=== PATIENT | male | born 1955 | race Caucasian/White ===

== ENCOUNTER 2021-08-03 13:26 | Inpatient (IN) | payer OTHER, MEDICARE ==
--- NOTE | 2021-08-03 13:51 | ED ---
General Adult HPI - General Chief complaint: Shortness of Breath Stated complaint: SOB Source: patient, EMS, RN notes reviewed Mode of arrival: EMS Limitations: no limitations - History of Present Illness Initial comments: This is a 66-year-old male who presents to us from [facility] they saw him up there for difficulty breathing today. Patient's past medical history is consistent with diabetes congestive heart failure bypass surgery a BKA on the left. Patient had a recent stress test that was abnormal so they wanted to a cardiac catheterization however when he was in the hospital his kidney function was off so they wanted the patient to stop his Lasix on so they were followed up in the maybe his kidney function would improve and they would feel more comfortable doing the catheterization. Patient states however over the last 2 or 3 days the he has had more difficulty breathing and so they went to the [place] emergency department. While in the department he was oxygenating about 90% on room air his BNP was over 8000 his d-dimer was elevated at 3.78 and his creatinine was 3.5 patient was unable to get a CAT scan because of the elevated creatinine so I started the patient on heparin and decided to send the patient to us. Patient normally would go to [facility] but [facility] was full and they tried [facility] but [facility] is full so he came to our facility. Patient denies any current chest pain but does complain of difficulty breathing - Related Data Allergies Allergy/AdvReac Type Severity Reaction Status Date / Time levofloxacin [From Levaquin] Allergy Rash/Hives Verified 08/03/21 13:39 metformin Allergy Vomiting Verified 08/03/21 13:39 sertraline [From Zoloft] Allergy Vomiting Verified 08/03/21 13:39 Review of Systems ROS Statement: Those systems with pertinent positive or pertinent negative responses have been documented in the HPI. ROS Other: All systems not noted in ROS Statement are negative. Past Medical History Past Medical History: Heart Failure, Diabetes Mellitus, Hypertension, Renal Disease Additional Past Medical History / Comment(s): mass of neck, UTI History of Any Multi-Drug Resistant Organisms: None Reported Past Surgical History: Coronary Bypass/CABG, Heart Catheterization, Pacemaker Additional Past Surgical History / Comment(s): urostomy, BKA Past Psychological History: Anxiety Smoking Status: Never smoker Past Alcohol Use History: None Reported Past Drug Use History: None Reported General Exam - General Exam Comments Initial Comments: GENERAL: Patient is well-developed and well-nourished. Patient is nontoxic and well- hydrated and is in mild distress. ENT: Neck is soft and supple. No significant lymphadenopathy is noted. Oropharynx is clear. Moist mucous membranes. Neck has full range of motion without eliciting any pain. EYES: The sclera were anicteric and conjunctiva were pink and moist. Extraocular movements were intact and pupils were equal round and reactive to light. Eyelids were unremarkable. PULMONARY: Unlabored respirations. Good breath sounds bilaterally. No audible rales rhonchi or wheezing was noted. CARDIOVASCULAR: There is a regular rate and rhythm without any murmurs gallops or rubs. ABDOMEN: Soft and nontender with normal bowel sounds. SKIN: Skin is clear with no lesions or rashes and otherwise unremarkable. NEUROLOGIC: Patient is alert and oriented x3. Cranial nerves II through XII are grossly intact. Motor and sensory are also intact. Normal speech, volume and content. Symmetrical smile. MUSCULOSKELETAL: Normal extremities with adequate strength and full range of motion. Patient has a BKA on the left. Patient has 1+ edema to the right leg. LYMPHATICS: No significant lymphadenopathy is noted PSYCHIATRIC: Normal psychiatric evaluation. Limitations: no limitations Course Vital Signs 08/03/21 13:30 Temperature 98.0 F Pulse Rate 78 Respiratory 22 Rate Blood Pressure 149/89 O2 Sat by Pulse 98 Oximetry Disposition Clinical Impression: Acute pulmonary edema, Elevated d-dimer, Renal failure, Hypoxia Disposition: ADMITTED IP TO THIS HOSP Referrals: None,Stated [Primary Care Provider] - 1-2 days Time of Disposition: 13:49
--- NOTE | 2021-08-03 15:25 | NM ---
EXAMINATION TYPE: NM pul vent and perfuse DATE OF EXAM: 08/03/2021 COMPARISON: Chest x-ray dated 08/03/2021 from outside institution HISTORY: Elevated d-dimer, difficulty breathing TECHNIQUE: Utilizing inhalation of 68.9 mCi Tc 99m DTPA aerosol and intravenous injection of 4.8 mCi of Tc 99m MAA, ventilation and perfusion images are acquired post injection in multiple projections. FINDINGS: There is a matching defect present in the left lower lobe which likely corresponds to patient's small left pleural effusion and associated atelectasis versus pneumonia or edema, cardiac enlargement on c hest x-ray. There is no evidence of mismatched defects. IMPRESSION: Low probability of pulmonary embolus
[2021-08-03] MEDS: FUROSEMIDE 10 MG/ML 2 ML VIAL IV SCH ×2 (15:53→20:21)
[2021-08-03 15:59] LABS: Glucose,Whole Blood 64 mg/dL (75-99)
--- NOTE | 2021-08-03 17:04 | P.HPIM ---
History of Present Illness H&P Date: 08/03/21 Chief Complaint: Shortness of breath 66-year-old male who presents to us from [facility] they saw him up there for difficulty breathing today. Patient's past medical history is consistent with diabetes congestive heart failure bypass surgery a BKA on the left. Patient had a recent stress test that was abnormal so they wanted to a cardiac catheterization however when he was in the hospital his kidney function was off so they wanted the patient to stop his Lasix on so they were followed up in the maybe his kidney function would improve and they would feel more comfortable doing the catheterization. Patient states however over the last 2 or 3 days the he has had more difficulty breathing and so they went to the [place] emergency department. While in the department he was oxygenating about 90% on room air his BNP was over 8000 his d-dimer was elevated at 3.78 and his creatinine was 3.5 patient was unable to get a CAT scan because of the elevated creatinine so I started the patient on heparin and decided to send the patient to us. Patient [facility] and they [facility] but [facility] is [facility] so he came to our facility. Patient denies any current chest pain but does complain of difficulty breathing Past Medical History Past Medical History: Heart Failure, Diabetes Mellitus, Hypertension, Renal Disease Additional Past Medical History / Comment(s): mass of neck, UTI History of Any Multi-Drug Resistant Organisms: None Reported Past Surgical History: Coronary Bypass/CABG, Heart Catheterization, Pacemaker Additional Past Surgical History / Comment(s): urostomy, BKA Past Psychological History: Anxiety Smoking Status: Never smoker Past Alcohol Use History: None Reported Past Drug Use History: None Reported Medications and Allergies Allergies Allergy/AdvReac Type Severity Reaction Status Date / Time levofloxacin [From Levaquin] Allergy Rash/Hives Verified 08/03/21 13:39 metformin Allergy Vomiting Verified 08/03/21 13:39 sertraline [From Zoloft] Allergy Vomiting Verified 08/03/21 13:39 Physical Exam Vitals: Vital Signs Temp Pulse Resp BP Pulse Ox 08/03/21 13:30 98.0 F 78 22 149/89 98 Intake and Output 08/02/21 08/03/21 08/03/21 22:59 06:59 14:59 Other: Weight 103.419 kg Patient is well-developed and well-nourished. Patient is nontoxic and well- hydrated and is in mild distress. Neck is soft and supple. No significant lymphadenopathy is noted. Oropharynx is clear. Moist mucous membranes. Neck has full range of motion without eliciting any pain. The sclera were anicteric and conjunctiva were pink and moist. Extraocular movements were intact and pupils were equal round and reactive to light. Eyelids were unremarkable. PULMONARY: Unlabored respirations. Good breath sounds bilaterally. No audible rales rhonchi or wheezing was noted. CARDIOVASCULAR: regular rate and rhythm without any murmurs gallops or rubs. ABDOMEN: Soft and nontender with normal bowel sounds. SKIN: clear with no lesions or rashes and otherwise unremarkable. NEUROLOGIC: Patient is alert and oriented x3. Cranial nerves II through XII are grossly intact. Motor and sensory are also intact. Normal speech, volume and content. Symmetrical smile. MUSCULOSKELETAL: Normal extremities with adequate strength and full range of motion. Patient has a BKA on the left. Patient has 1+ edema to the right leg. LYMPHATICS: No significant lymphadenopathy is noted PSYCHIATRIC: Normal psychiatric evaluation. Assessment and Plan Assessment: 1. Acute pulmonary edema; patienton Lasix 20 mg IV every 12 hours; we will monitor strict RHODA's, daily weights; low-salt and fluid restricted diet; cardiology consulted for further recommendations 2. Acute renal failure; concerns about worsening renal failure given acute pulmonary edema and need for diuresis; we will monitor strict RHODA's, daily weights, renal function and electrolytes; avoid nephrotoxins and hypotension; nephrology is consulted 3. Elevated d-dimer; rule out PE; patient is in acute renal failure, CTA chest not ordered, patient is to undergo VQ scanning; patient has been placed on IV heparin per protocol; further recommendations after VQ scan is completed 4. Acute hypoxic respiratory failure; multifactorial, acute pulmonary edema versus possible PE; VQ scan is ordered and pending; we will place patient on IV heparin per protocol if VQ scan is high probability 5. Hypertension; blood pressures currently stable; we will monitor closely with further recommendations 6. Diabetes mellitus; monitor Accu-Cheks before meals and at bedtime with insulin sliding scale 7. CAD; patient is status post heart catheterization, CABG and pacemaker placement DVT prophylaxis; SCDs/subcu heparin CODE STATUS; full code
[2021-08-03 19:27] LABS: Glucose,Whole Blood 135 mg/dL (75-99)
[2021-08-03] MEDS ORDERED: ALPRAZolam 0.5 MG TAB PO STA (20:02)
[2021-08-03] MEDS: ONDANSETRON 4 MG/2 ML VIAL IVP PRN (20:21)
[2021-08-04] MEDS: ONDANSETRON 4 MG/2 ML VIAL IVP PRN ×2 (02:48→15:59)
[2021-08-04 06:18] LABS: Glucose,Whole Blood 103 mg/dL (75-99)
--- NOTE | 2021-08-04 08:19 | P.CRDCN ---
History of Present Illness Consult date: 08/04/21 Chief complaint: Difficulty breathing History of present illness: This is a 66-year-old gentleman who sees a patient attendant out of this area. He does have an extensive cardiovascular history consistent of coronary artery disease and status post coronary artery that is grafting with unknown details, permanent pacemaker, peripheral arterial disease and prior left below the knee amputation, as well as hypertension and dyslipidemia and history of heart failure of unknown etiology. We consulted to see the patient for further evaluation of difficulty in breathing. The patient was seen recently by his patient attendant for increasing shortness of breath and he underwent a stress test and he was told that the stress test is "abnormal". He scheduled to undergo a heart catheterization but unfortunately because of renal dysfunction the catheterization was canceled. For the last several days he has been experiencing increasing in the shortness of breath with exertion without any chest pain or chest discomfort. He stated that he gained some weight but he does not recall how many pounds. He did not have any edema in the right leg. He denies any dizziness or lightheadedness or any presyncope or syncope. He initially presented to the emergency department at different hospital and subsequently he was transferred here. I did review the EKG from the other hospital which revealed ventricular paced rhythm. The patient clinically seems to be in heart failure. Currently he is on Lasix 20 mg IVP artery. We don't have any basic blood workup at this point on him nor an echocardiogram. We are going to obtain both. He underwent a VQ scan and that showed low priority for PE. Past Medical History Past Medical History: Heart Failure, Diabetes Mellitus, Hypertension, Renal Disease Additional Past Medical History / Comment(s): mass of neck, UTI History of Any Multi-Drug Resistant Organisms: None Reported Past Surgical History: Coronary Bypass/CABG, Heart Catheterization, Pacemaker Additional Past Surgical History / Comment(s): urostomy, BKA Type of Cardiac Device: Permanent Pacemaker Device Placement Date:: 2017 Past Psychological History: Anxiety, Panic Disorder Smoking Status: Never smoker Past Alcohol Use History: None Reported Past Drug Use History: None Reported - Past Family History Father Family Medical History: Congestive Heart Failure (CHF), Diabetes Mellitus, Hypertension Medications and Allergies Home Medications Medication Instructions Recorded Confirmed Type ALPRAZolam [Xanax] 0.5 mg PO BID PRN 08/03/21 08/03/21 History Aspirin EC [Ecotrin Low Dose] 81 mg PO HS 08/03/21 08/03/21 History Furosemide [Lasix] 40 mg PO DAILY PRN 08/03/21 08/03/21 History Insulin Glargine [Lantus Vial] 14 unit SQ DAILY 08/03/21 08/03/21 History Metoprolol Tartrate [Lopressor] 100 mg PO BID 08/03/21 08/03/21 History Pravastatin Sodium [Pravachol] 20 mg PO HS 08/03/21 08/03/21 History Sodium Bicarbonate Tab 650 mg PO BID 08/03/21 08/03/21 History amLODIPine [Norvasc] 10 mg PO DAILY 08/03/21 08/03/21 History calcitrioL [Calcitriol] 0.25 mcg PO DAILY 08/03/21 08/03/21 History glipiZIDE [Glucotrol] 10 mg PO AC-BRKFST 08/03/21 08/03/21 History hydrALAZINE HCL [Apresoline] 50 mg PO BID 08/03/21 08/03/21 History hydrALAZINE HCL [Apresoline] 100 mg PO DAILY@1200 08/03/21 08/03/21 History Allergies Allergy/AdvReac Type Severity Reaction Status Date / Time levofloxacin [From Levaquin] Allergy Rash/Hives Verified 08/03/21 20:26 metformin Allergy Vomiting Verified 08/03/21 20:26 sertraline [From Zoloft] Allergy Vomiting Verified 08/03/21 20:26 Physical Exam Vitals: Vital Signs Temp Pulse Pulse Resp BP BP Pulse Ox 08/04/21 03:02 98.0 F 72 18 161/74 95 08/04/21 02:00 70 18 08/04/21 00:00 98.5 F 73 24 147/68 93 L 08/03/21 20:00 70 18 08/03/21 19:15 98.1 F 72 18 154/70 08/03/21 16:59 68 20 153/69 97 08/03/21 15:49 67 20 100/80 97 08/03/21 13:39 24 08/03/21 13:30 98.0 F 78 22 149/89 98 Intake and Output 08/03/21 08/04/21 08/04/21 22:59 06:59 14:59 Output Total 550 Balance -550 Output: Urine 550 Other: Weight 103.419 kg 102.6 kg - Constitutional General appearance: no acute distress - Respiratory Respiratory: bilateral: diminished - Cardiovascular Rhythm: regular Heart sounds: normal: S1, S2 Abnormal Heart Sounds: systolic murmur Results Current Medications Generic Name Dose Route Start Last Admin Trade Name Freq PRN Reason Stop Dose Admin Furosemide 20 mg 08/03/21 14:15 08/03/21 20:21 Furosemide 10 Mg/Ml 2 Ml Vial IV 20 mg Q12HR KYLIE Administration Ondansetron HCl 4 mg 08/03/21 20:07 08/04/21 02:48 Ondansetron 4 Mg/2 Ml Vial IVP 4 mg Q6HR PRN Administration Nausea And Vomiting Intake and Output 08/03/21 08/04/21 08/04/21 22:59 06:59 14:59 Output Total 550 Balance -550 Output: Urine 550 Other: Weight 103.419 kg 102.6 kg Assessment and Plan Assessment: Assessment #1 congestive heart failure exacerbation and known etiology at this point #2 coronary artery disease and status post CABG #3 peripheral arterial disease and status post left below the knee amputation #4 hypertension #6 dyslipidemia #7 chronic kidney disease #8 status post permanent pacemaker Plan #1 continue the current dose of Lasix IV #2 continue monitoring the kidney function and electrolytes #3 obtain a basic blood work #4 obtain an echocardiogram was Doppler #5 follow-up with the patient
[2021-08-04] MEDS ORDERED: INSULIN DETEMIR (LEVEMIR) 100 UNIT/ML SYR SQ SCH (09:00)
[2021-08-04] MEDS: hydrALAZINE HCL 50 MG TAB PO SCH ×3 (09:00→20:29)
[2021-08-04] MEDS: amLODIPine 10 MG TAB PO SCH (09:00)
[2021-08-04] MEDS ORDERED: SODIUM BICARBONATE TAB 650 MG TAB PO SCH (09:00)
[2021-08-04] MEDS: METOPROLOL TARTRATE 50 MG TAB PO SCH ×2 (09:00→20:28)
[2021-08-04] MEDS: FUROSEMIDE 10 MG/ML 2 ML VIAL IV SCH (09:01)
[2021-08-04 09:24] LABS: Basophils % (A) 0 %; Eosinophils % (A) 0 %; HCT 26.6 % (39.0-53.0); HGB 8.9 gm/dL (13.0-17.5); Lymphocytes # (A) 0.4 k/uL (1.0-4.8); Lymphocytes % (A) 8 %; MCH 28.4 pg (25.0-35.0); MCHC 33.5 g/dL (31.0-37.0); MCV 84.8 fL (80.0-100.0); Monocytes # (A) 0.3 k/uL (0-1.0); Monocytes % (A) 6 %; Neutrophils # (A) 4.5 k/uL (1.3-7.7); Neutrophils % (A) 83 %; Platelet Count 171 k/uL (150-450); RBC 3.13 m/uL (4.30-5.90); RDW 15.1 % (11.5-15.5); WBC 5.5 k/uL (3.8-10.6)
[2021-08-04 09:49] LABS: Calcium 7.5 mg/dL (8.4-10.2); Potassium 4.8 mmol/L (3.5-5.1)
--- NOTE | 2021-08-04 09:55 | XR ---
EXAMINATION TYPE: XR chest 2V DATE OF EXAM: 08/04/2021 COMPARISON: Outside hospital chest radiograph dated 08/03/2021 HISTORY: 66 years Male. STUDY INDICATION GIVEN: Chest Pain . TECHNIQUE: Frontal lateral chest radiographs IMPRESSION: Compared to the outside chest radiograph there is worsening of interstitial bilateral opacities which are greater on the right. These may represent pulmonary edema secondary to congestive heart failure. Underlying pneumonic infiltrate cannot be entirely excluded. The heart is enlarged. There is a small left pleural effusion. No pleural effusion seen on the right. No pneumothorax. Cardiac pacemaker and postsurgical changes in the mediastinum are seen. Atherosclerotic calcification s in the intrathoracic aorta noted. No acute osseous abnormality.
--- NOTE | 2021-08-04 11:48 | P.NPCON ---
History of Present Illness - Reason for Consult Consult date: 08/04/21 acute renal failure - Chief Complaint Shortness of breath - History of Present Illness This is a 66-year-old male seen in consultation because of acute kidney injury and chronic kidney disease. He was admitted with shortness of breath. He is known with chronic kidney disease, he is under the care of Dr. peter Sun his baseline creatinine supposedly 2.7 but the last few weeks it has been going up. His Lasix was therefore discontinued to see if his creatinine would improve. His creatinine here on admission was 3.53 as of this morning. He is known with diabetes for 15 years, has had very artery bypass graft and pacer in the past he left BKA in 2013 EC of the bladder with urostomy in 2018. Supposedly and recent ultrasound a few weeks ago was unremarkable for any hydronephrosis. Currently he is mildly short of breath. Has mild edema of his right leg Past Medical History Past Medical History: Heart Failure, Diabetes Mellitus, Hypertension, Renal Disease Additional Past Medical History / Comment(s): mass of neck, UTI History of Any Multi-Drug Resistant Organisms: None Reported Past Surgical History: Coronary Bypass/CABG, Heart Catheterization, Pacemaker Additional Past Surgical History / Comment(s): urostomy, BKA Type of Cardiac Device: Permanent Pacemaker Device Placement Date:: 2017 Past Psychological History: Anxiety, Panic Disorder Smoking Status: Never smoker Past Alcohol Use History: None Reported Past Drug Use History: None Reported - Past Family History Father Family Medical History: Congestive Heart Failure (CHF), Diabetes Mellitus, Hypertension Medications and Allergies Home Medications Medication Instructions Recorded Confirmed Type ALPRAZolam [Xanax] 0.5 mg PO BID PRN 08/03/21 08/03/21 History Aspirin EC [Ecotrin Low Dose] 81 mg PO HS 08/03/21 08/03/21 History Furosemide [Lasix] 40 mg PO DAILY PRN 08/03/21 08/03/21 History Insulin Glargine [Lantus Vial] 14 unit SQ DAILY 08/03/21 08/03/21 History Metoprolol Tartrate [Lopressor] 100 mg PO BID 08/03/21 08/03/21 History Pravastatin Sodium [Pravachol] 20 mg PO HS 08/03/21 08/03/21 History Sodium Bicarbonate Tab 650 mg PO BID 08/03/21 08/03/21 History amLODIPine [Norvasc] 10 mg PO DAILY 08/03/21 08/03/21 History calcitrioL [Calcitriol] 0.25 mcg PO DAILY 08/03/21 08/03/21 History glipiZIDE [Glucotrol] 10 mg PO AC-BRKFST 08/03/21 08/03/21 History hydrALAZINE HCL [Apresoline] 50 mg PO BID 08/03/21 08/03/21 History hydrALAZINE HCL [Apresoline] 100 mg PO DAILY@1200 08/03/21 08/03/21 History Allergies Allergy/AdvReac Type Severity Reaction Status Date / Time levofloxacin [From Levaquin] Allergy Rash/Hives Verified 08/03/21 20:26 metformin Allergy Vomiting Verified 08/03/21 20:26 sertraline [From Zoloft] Allergy Vomiting Verified 08/03/21 20:26 Physical Exam Vitals: Vital Signs Temp Pulse Pulse Resp BP BP Pulse Ox 08/04/21 08:00 98.0 F 69 148/68 93 L 08/04/21 03:02 98.0 F 72 18 161/74 95 08/04/21 02:00 70 18 08/04/21 00:00 98.5 F 73 24 147/68 93 L 08/03/21 20:00 70 18 08/03/21 19:15 98.1 F 72 18 154/70 08/03/21 16:59 68 20 153/69 97 08/03/21 15:49 67 20 100/80 97 08/03/21 13:39 24 08/03/21 13:30 98.0 F 78 22 149/89 98 Intake and Output 08/03/21 08/04/21 08/04/21 22:59 06:59 14:59 Intake Total 180 Output Total 550 275 Balance -550 -95 Intake: Oral 180 Output: Urine 550 275 Other: Weight 103.419 kg 102.6 kg On examination awake alert oriented comfortable. He is on nasal cannula oxygen HEENT exam no JVP neck is supple no facial asymmetry no carotid bruit. Heart sounds are unremarkable for any murmur rub gallop. Lungs are clear to auscultation with an occasional coarse crackle at bases good air entry bilaterally Abdomen soft nontender no organomegaly status masses Extremity exam was BKA on the left with the prosthesis is on. The right leg has mild to moderate edema Neurologically awake alert oriented Results - Lab Results Most recent lab results Calcium 7.5 mg/dL (8.4-10.2) L 08/04/21 08:32 08/04/21 08:32 08/04/21 08:32 Assessment and Plan Assessment: Impression 1. Acute kidney injury secondary to cardiorenal syndrome. 2. 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 Baseline creatinine is 2.7 per patient's history dates not clear but has been worsening recently 2 up to 3. 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 Lyle at [place]. 3. Coronary artery disease status post bypass in the remote past. 4. History of pacer 5. 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 History of BKA 2013 on the left. 7. Mild degree of non-gap acidosis. Bicarb is 15 gap is 11 8. Anemia of chronic illness. He was 8.9 rule out an deficiency Recommendation 1. Maintain Lasix, increase the dose from 20 mg every 12-40 every 12 and check strict I's and O's. 2. Check iron saturation. 3. Agree with sodium bicarb 650 4 times a day currently on twice a day dose will increase the dose. 4. Regarding cardiac catheterization hold until we can stabilize his creatinine. Patient is agreeable to undergo cardiac catheterization necessary and understand the risk of ATN possibly, and further going on for dialysis although the possibilities in small that he'll require dialysis of the cardiac catheterization Thank you for this consultation and we'll continue to follow
[2021-08-04 11:54] LABS: Glucose,Whole Blood 83 mg/dL (75-99)
[2021-08-04] MEDS: INSULIN ASPART (NovoLOG) 100 UNIT/ML VIAL SQ SCH ×3 (12:15→23:32)
[2021-08-04 12:53] VITALS: BMI 33.4
--- NOTE | 2021-08-04 13:00 | P.CNPUL ---
History of Present Illness Consult date: 08/04/21 Requesting physician: Amee Chavez Reason for consult: dyspnea, hypoxemia, abnormal CXR/CT Chief complaint: Shortness of breath. History of present illness: Pulmonary consultation dated 08/04/2021. 66-year-old male, who was sent down from [facility], for difficulty breathing. The patient was apparently to have a cardiac catheterization. Because of poor kidney function, the patient was receiving IV hydration. The patient's cardiac catheterization was canceled because of some abnormal blood work, and he did not receive his usual Lasix dose. Because of that reason, the patient became short of breath, and developed congestive heart failure. The patient was admitted to the hospital, given oxygen therapy, and Lasix. The patient is feeling much better. She is much less short of breath. He denies any chest pain or chest pressure. He also denies any fever or chills. Curren tly, white count is 5.5, hemoglobin 8.9, hematocrit 26.6, and platelet count 171,000. Sodium 134, potassium 4.8, chlorides 108, CO2 15, anion gap 11, BUN and creatinine 58 and 3.53. Troponin was 0.017. N-terminal proBNP was 10,100. For some reason, a ventilation perfusion lung scan was ordered. It was low probability for PE. Chest x-ray was consistent with CHF. There was also cardiomegaly, and a small left-sided pleural effusion. Cardiac pacemaker was also noted. The patient has a history of congestive heart failure, diabetes mellitus, hypertension, chronic kidney disease, bypass grafting, pacemaker insertion, and below the knee amputation. Review of Systems REVIEW OF SYSTEMS: CONSTITUTIONAL: [Negative.] NEUROLOGIC: [ Negative.] HEENT: [ Negative.] CARDIAC: Shortness of breath. PULMONARY: [Negative.] GI: Nausea without emesis. : [Negative.] RHEUMATOLOGIC: [ Negative.] IMMUNOLOGIC: [ Negative.] ENDOCRINE: [Negative. ] DERMATOLOGIC: [Negative.] Past Medical History Past Medical History: Heart Failure, Diabetes Mellitus, Hypertension, Renal Disease Additional Past Medical History / Comment(s): mass of neck, UTI History of Any Multi-Drug Resistant Organisms: None Reported Past Surgical History: Coronary Bypass/CABG, Heart Catheterization, Pacemaker Additional Past Surgical History / Comment(s): urostomy, BKA Type of Cardiac Device: Permanent Pacemaker Device Placement Date:: 2017 Past Psychological History: Anxiety, Panic Disorder Smoking Status: Never smoker Past Alcohol Use History: None Reported Past Drug Use History: None Reported - Past Family History Father Family Medical History: Congestive Heart Failure (CHF), Diabetes Mellitus, Hypertension Medications and Allergies Home Medications Medication Instructions Recorded Confirmed Type ALPRAZolam [Xanax] 0.5 mg PO BID PRN 08/03/21 08/03/21 History Aspirin EC [Ecotrin Low Dose] 81 mg PO HS 08/03/21 08/03/21 History Furosemide [Lasix] 40 mg PO DAILY PRN 08/03/21 08/03/21 History Insulin Glargine [Lantus Vial] 14 unit SQ DAILY 08/03/21 08/03/21 History Metoprolol Tartrate [Lopressor] 100 mg PO BID 08/03/21 08/03/21 History Pravastatin Sodium [Pravachol] 20 mg PO HS 08/03/21 08/03/21 History Sodium Bicarbonate Tab 650 mg PO BID 08/03/21 08/03/21 History amLODIPine [Norvasc] 10 mg PO DAILY 08/03/21 08/03/21 History calcitrioL [Calcitriol] 0.25 mcg PO DAILY 08/03/21 08/03/21 History glipiZIDE [Glucotrol] 10 mg PO AC-BRKFST 08/03/21 08/03/21 History hydrALAZINE HCL [Apresoline] 50 mg PO BID 08/03/21 08/03/21 History hydrALAZINE HCL [Apresoline] 100 mg PO DAILY@1200 08/03/21 08/03/21 History Allergies Allergy/AdvReac Type Severity Reaction Status Date / Time levofloxacin [From Levaquin] Allergy Rash/Hives Verified 08/03/21 20:26 metformin Allergy Vomiting Verified 08/03/21 20:26 sertraline [From Zoloft] Allergy Vomiting Verified 08/03/21 20:26 Physical Exam Osteopathic Statement: *. No significant issues noted on an osteopathic structural exam other than those noted in the History and Physical/Consult. Vitals: Vital Signs Temp Pulse Pulse Resp BP BP Pulse Ox 08/04/21 12:00 65 122/58 95 08/04/21 08:00 98.0 F 69 148/68 93 L 08/04/21 03:02 98.0 F 72 18 161/74 95 08/04/21 02:00 70 18 08/04/21 00:00 98.5 F 73 24 147/68 93 L 08/03/21 20:00 70 18 08/03/21 19:15 98.1 F 72 18 154/70 08/03/21 16:59 68 20 153/69 97 08/03/21 15:49 67 20 100/80 97 08/03/21 13:39 24 08/03/21 13:30 98.0 F 78 22 149/89 98 Intake and Output 08/03/21 08/04/21 08/04/21 22:59 06:59 14:59 Intake Total 180 Output Total 550 275 Balance -550 -95 Intake: Oral 180 Output: Urine 550 275 Other: Weight 103.419 kg 102.6 kg No acute distress, oriented 3. 2 L saturation is 95%. HEENT examination is grossly unremarkable. Neck supple. Full range of motion. No adenopathy thyromegaly or neck vein distention. Cardiovascular examination reveals regular rhythm rate. S1-S2 normal. No S3 or S4. No discernible murmur noted. Heart sounds are very distant. Heart rate 65 bpm. Lungs reveal bibasilar crackles. No wheezes or rhonchi. Breath sounds equal bilaterally. Abdomen soft bowel sounds are heard. No masses or tenderness. Extremities are intact. No cyanosis or clubbing. No significant edema. Below the knee amputation noted on the left. Skin is without rash or lesion. Neurologic examination is brief but nonfocal. Results - Laboratory Findings CBC and BMP: 08/04/21 08:32 08/04/21 08:32 Abnormal lab findings: Abnormal Labs 08/03/21 08/03/21 08/04/21 15:52 19:16 06:09 RBC Hgb Hct Lymphocytes # Sodium Chloride Carbon Dioxide BUN Creatinine Glucose POC Glucose (mg/dL) 64 L 135 H 103 H Calcium 08/04/21 08/04/21 08:32 08:32 RBC 3.13 L Hgb 8.9 L Hct 26.6 L Lymphocytes # 0.4 L Sodium 134 L Chloride 108 H Carbon Dioxide 15 L BUN 58 H Creatinine 3.53 H Glucose 122 H POC Glucose (mg/dL) Calcium 7.5 L - Diagnostic Findings Chest x-ray: image reviewed Assessment and Plan Assessment: Acute hypoxemic respiratory failure, secondary to acute pulmonary edema/CHF. History of CHF. History of diabetes mellitus. History of hypertension. History of chronic kidney disease. Status post bypass grafting for CAD. Prior history of heart catheterization. History of pacemaker implantation. History of left BKA. Plan: Plan dated 08/04/2021. Currently, the patient's doing much better. The patient is not receiving any IV fluids. He's only on 2 L nasal cannula. Saturations are excellent. He is clinically improved. He did receive some Lasix. His pattern on chest x-ray was consistent with fluid overload/CHF. Chronic lung disease. Patient is a lifelong nontobacco user. Time with Patient: Greater than 30
[2021-08-04] MEDS: FUROSEMIDE 10 MG/ML 4 ML VIAL IV SCH ×2 (13:08→20:32)
[2021-08-04] MEDS: SODIUM BICARBONATE TAB 650 MG TAB PO SCH ×3 (13:09→23:32)
[2021-08-04 16:37] LABS: Glucose,Whole Blood 115 mg/dL (75-99)
[2021-08-04 16:50] LABS: Creatinine,Urine Random 95.4 mg/dL; Protein/Creatinine Ratio,Urine 1.363
[2021-08-04] MEDS: ALPRAZolam 0.5 MG TAB PO PRN (17:18)
--- NOTE | 2021-08-04 17:29 | P.PN ---
Subjective Progress Note Date: 08/04/21 Principal diagnosis: Acute hypoxemic respiratory failure Acute pulmonary edema/CHF 66-year-old male who presents to us from [facility] they saw him up there for difficulty breathing today. Patient's past medical history is consistent with diabetes congestive heart failure bypass surgery a BKA on the left. Patient had a recent stress test that was abnormal so they wanted to a cardiac catheterization however when he was in the hospital his kidney function was off so they wanted the patient to stop his Lasix on so they were followed up in the maybe his kidney function would improve and they would feel more comfortable doing the catheterization. Patient states however over the last 2 or 3 days the he has had more difficulty breathing and so they went to the [place] emergency department. While in the department he was oxygenating about 90% on room air his BNP was over 8000 his d-dimer was elevated at 3.78 and his creatinine was 3.5 patient was unable to get a CAT scan because of the elevated creatinine so I started the patient on heparin and decided to send the patient to us. Patient normally would [facility] and [facility] so he came to our facility. Patient denies any current chest pain but does complain of difficulty breathing Objective - Vital Signs Vital signs: Vital Signs Temp 98.0 F 08/04/21 08:00 Pulse 65 08/04/21 12:00 Resp 18 08/04/21 03:02 BP 122/58 08/04/21 12:00 Pulse Ox 95 08/04/21 12:00 Intake & Output 08/03/21 08/04/21 08/04/21 18:59 06:59 18:59 Intake Total 300 Output Total 550 575 Balance -550 275 Weight 103.419 kg 102.6 kg 102.6 kg Intake: Oral 300 Output: Urine 550 575 - Exam - Constitutional General appearance: Present: average body habitus, cooperative, no acute dist ress - EENT Eyes: Present: anicteric sclerae, EOMI, PERRLA, normal appearance ENT: Present: hearing grossly normal, normal oropharynx Ears: bilateral: normal - Neck Neck: Present: normal ROM. Absent: lymphadenopathy, rigidity, thyromegaly Carotids: negative: bruit present Thyroid: bilateral: normal size, negative: enlarged, nodule - Respiratory Respiratory: bilateral: CTA, negative: rales, rhonchi, wheezing - Cardiovascular Rhythm: regular Heart sounds: normal: S1, S2 Abnormal Heart Sounds: Absent: systolic murmur, diastolic murmur - Gastrointestinal General gastrointestinal: Present: normal bowel sounds, soft. Absent: distended, organomegaly, tenderness - Genitourinary Genitourinary Comment(s): deferred - Integumentary Integumentary: Present: normal turgor. Absent: jaundiced, rash, ulcer - Neurologic Neurologic: Present: CNII-XII intact. Absent: focal deficits - Musculoskeletal Musculoskeletal: Present: gait normal, strength equal bilaterally - Psychiatric Psychiatric: Present: A&O x's 3, appropriate affect, intact judgment & insight - Labs CBC & Chem 7: 08/04/21 08:32 08/04/21 08:32 Labs: Abnormal Lab Results - Last 24 Hours (Table) 08/03/21 08/03/21 08/04/21 Range/Units 15:52 19:16 06:09 RBC (4.30-5.90) m/uL Hgb (13.0-17.5) gm/dL Hct (39.0-53.0) % Lymphocytes # (1.0-4.8) k/uL Sodium (137-145) mmol/L Chloride (98-107) mmol/L Carbon Dioxide (22-30) mmol/L BUN (9-20) mg/dL Creatinine (0.66-1.25) mg/dL Glucose (74-99) mg/dL POC Glucose (mg/dL) 64 L 135 H 103 H (75-99) mg/dL Calcium (8.4-10.2) mg/dL 08/04/21 08/04/21 Range/Units 08:32 08:32 RBC 3.13 L (4.30-5.90) m/uL Hgb 8.9 L (13.0-17.5) gm/dL Hct 26.6 L (39.0-53.0) % Lymphocytes # 0.4 L (1.0-4.8) k/uL Sodium 134 L (137-145) mmol/L Chloride 108 H (98-107) mmol/L Carbon Dioxide 15 L (22-30) mmol/L BUN 58 H (9-20) mg/dL Creatinine 3.53 H (0.66-1.25) mg/dL Glucose 122 H (74-99) mg/dL POC Glucose (mg/dL) (75-99) mg/dL Calcium 7.5 L (8.4-10.2) mg/dL Assessment and Plan Assessment: 1. Acute pulmonary edema; patienton Lasix 20 mg IV every 12 hours; we will monitor strict RHODA's, daily weights; low-salt and fluid restricted diet; cardiology consulted for further recommendations 2. Acute renal failure; concerns about worsening renal failure given acute pulmonary edema and need for diuresis; we will monitor strict RHODA's, daily weights, renal function and electrolytes; avoid nephrotoxins and hypotension; nephrology is consulted 3. Elevated d-dimer; rule out PE; patient is in acute renal failure, CTA chest not ordered, patient is to undergo VQ scanning; patient has been placed on IV heparin per protocol; further recommendations after VQ scan is completed 4. Acute hypoxic respiratory failure; multifactorial, acute pulmonary edema versus possible PE; VQ scan is ordered and pending; we will place patient on IV heparin per protocol if VQ scan is high probability 5. Hypertension; blood pressures currently stable; we will monitor closely with further recommendations 6. Diabetes mellitus; monitor Accu-Cheks before meals and at bedtime with insulin sliding scale 7. CAD; patient is status post heart catheterization, CABG and pacemaker placement DVT prophylaxis; SCDs/subcu heparin CODE STATUS; full code
[2021-08-04] MEDS: ASPIRIN 81 MG PO SCH (20:28)
[2021-08-04] MEDS: PRAVASTATIN SODIUM 20 MG TAB PO SCH (20:29)
[2021-08-04 20:43] LABS: Glucose,Whole Blood 161 mg/dL (75-99)
[2021-08-05 06:24] LABS: Glucose,Whole Blood 100 mg/dL (75-99)
--- NOTE | 2021-08-05 07:09 | P.PN ---
Subjective Progress Note Date: 08/05/21 Principal diagnosis: Heart failure of unknown etiology The patient was seen this morning. He is diuresing well. He is feeling overall better. The shortness of breath is better. Lower extremities edema is better as well. He denies any symptoms of chest chest discomfort. The echo still pending. Nephrology is on the case as well. Objective - Vital Signs Vital signs: Vital Signs Temp 97.4 F L 08/05/21 04:00 Pulse 65 08/05/21 04:00 Resp 17 08/05/21 04:00 BP 123/52 08/05/21 04:00 Pulse Ox 93 L 08/05/21 04:00 Intake & Output 08/04/21 08/05/21 08/05/21 18:59 06:59 18:59 Intake Total 420 Output Total 875 700 Balance -455 -700 Weight 102.6 kg 102.4 kg Intake: Oral 420 Output: Urine 875 700 Other: Voiding Method Ileal Conduit (Right) # Voids 1 - Constitutional General appearance: Present: no acute distress - Respiratory Respiratory: bilateral: diminished - Cardiovascular Heart sounds: normal: S1, S2 - Labs CBC & Chem 7: 08/04/21 08:32 08/04/21 08:32 Labs: Abnormal Lab Results - Last 24 Hours (Table) 08/04/21 08/04/21 08/04/21 Range/Units 08:32 08:32 16:35 RBC 3.13 L (4.30-5.90) m/uL Hgb 8.9 L (13.0-17.5) gm/dL Hct 26.6 L (39.0-53.0) % Lymphocytes # 0.4 L (1.0-4.8) k/uL Sodium 134 L (137-145) mmol/L Chloride 108 H (98-107) mmol/L Carbon Dioxide 15 L (22-30) mmol/L BUN 58 H (9-20) mg/dL Creatinine 3.53 H (0.66-1.25) mg/dL Glucose 122 H (74-99) mg/dL POC Glucose (mg/dL) 115 H (75-99) mg/dL Calcium 7.5 L (8.4-10.2) mg/dL 08/04/21 08/05/21 Range/Units 20:37 06:04 RBC (4.30-5.90) m/uL Hgb (13.0-17.5) gm/dL Hct (39.0-53.0) % Lymphocytes # (1.0-4.8) k/uL Sodium (137-145) mmol/L Chloride (98-107) mmol/L Carbon Dioxide (22-30) mmol/L BUN (9-20) mg/dL Creatinine (0.66-1.25) mg/dL Glucose (74-99) mg/dL POC Glucose (mg/dL) 161 H 100 H (75-99) mg/dL Calcium (8.4-10.2) mg/dL Assessment and Plan Assessment: Assessment #1 congestive heart failure exacerbation and known etiology at this point #2 coronary artery disease and status post CABG #3 peripheral arterial disease and status post left below the knee amputation #4 hypertension #6 dyslipidemia #7 chronic kidney disease #8 status post permanent pacemaker Plan #1 continue the current dose of Lasix IV #2 continue monitoring the kidney function and electrolytes #3 follow-up with the blood work from the morning #4 obtain an echocardiogram was Doppler #5 follow-up with the patient
[2021-08-05] MEDS: INSULIN ASPART (NovoLOG) 100 UNIT/ML VIAL SQ SCH ×4 (08:02→20:48)
[2021-08-05] MEDS: METOPROLOL TARTRATE 50 MG TAB PO SCH ×2 (09:03→20:47)
[2021-08-05] MEDS: hydrALAZINE HCL 50 MG TAB PO SCH ×3 (09:03→20:47)
[2021-08-05] MEDS: SODIUM BICARBONATE TAB 650 MG TAB PO SCH ×4 (09:03→20:48)
[2021-08-05] MEDS: amLODIPine 10 MG TAB PO SCH (09:03)
[2021-08-05] MEDS: FUROSEMIDE 10 MG/ML 4 ML VIAL IV SCH ×2 (09:03→20:48)
[2021-08-05 09:05] LABS: Calcium 8.1 mg/dL (8.4-10.2); Potassium 4.8 mmol/L (3.5-5.1)
[2021-08-05 09:26] LABS: Basophils % (A) 0 %; Eosinophils # (A) 0.1 k/uL (0-0.7); Eosinophils % (A) 1 %; HGB 9.4 gm/dL (13.0-17.5); Lymphocytes # (A) 0.5 k/uL (1.0-4.8); Lymphocytes % (A) 7 %; MCH 28.6 pg (25.0-35.0); MCHC 33.5 g/dL (31.0-37.0); MCV 85.3 fL (80.0-100.0); Mean Platelet Volume 7.8; Monocytes # (A) 0.5 k/uL (0-1.0); Monocytes % (A) 6 %; Neutrophils # (A) 6.5 k/uL (1.3-7.7); Neutrophils % (A) 85 %; Platelet Count 202 k/uL (150-450); RBC 3.28 m/uL (4.30-5.90); WBC 7.6 k/uL (3.8-10.6)
--- NOTE | 2021-08-05 10:13 | P.PN ---
Subjective Progress Note Date: 08/05/21 Principal diagnosis: This is a 66-year-old male seen in consultation because of acute kidney injury and chronic kidney disease. He was admitted with shortness of breath. He is known with chronic kidney disease, he is under the care of Dr. Lyle at [place], his baseline creatinine supposedly 2.7 but the last few weeks it has been going up. His Lasix was therefore discontinued to see if his creatinine would improve. His creatinine here on admission was 3.53. His x-ray on admission showed congestive heart failure. He was started on Lasix. He responded with improved urine output, 157 5 mL, less short of breath but still feels weak and tired and short of breath poor appetite. His creatinine went up to 4.1.. He is known with diabetes for 15 years, has had very artery bypass graft and pacer in the past he left BKA in 2013 EC of the bladder with urostomy in 2018. Supposedly and recent ultrasound a few weeks ago was unremarkable for any hydronephrosis. Objective - Vital Signs Vital signs: Vital Signs Temp 97.4 F L 08/05/21 04:00 Pulse 65 08/05/21 04:00 Resp 17 08/05/21 04:00 BP 123/52 08/05/21 04:00 Pulse Ox 93 L 08/05/21 04:00 Intake & Output 08/04/21 08/05/21 08/05/21 18:59 06:59 18:59 Intake Total 420 240 Output Total 875 700 Balance -455 -700 240 Weight 102.6 kg 102.4 kg Intake: Oral 420 240 Output: Urine 875 700 Other: Voiding Method Ileal Conduit (Right) # Voids 1 On exam he is awake alert oriented HEENT exam no JVP neck is supple no facial asymmetry Lungs are significant for occasional coarse crackle at bases fairly good air entry bilaterally Heart sounds unremarkable for any murmur rub gallop Abdomen soft nontender nondistended. He has a urostomy bag Extremity examination reveals left BKA remote and the right leg has minimal edema. Neurologically awake alert oriented. - Labs CBC & Chem 7: 08/05/21 08:40 08/05/21 08:40 Labs: Abnormal Lab Results - Last 24 Hours (Table) 08/04/21 08/04/21 08/05/21 Range/Units 16:35 20:37 06:04 RBC (4.30-5.90) m/uL Hgb (13.0-17.5) gm/dL Hct (39.0-53.0) % Lymphocytes # (1.0-4.8) k/uL Sodium (137-145) mmol/L Carbon Dioxide (22-30) mmol/L BUN (9-20) mg/dL Creatinine (0.66-1.25) mg/dL Glucose (74-99) mg/dL POC Glucose (mg/dL) 115 H 161 H 100 H (75-99) mg/dL Calcium (8.4-10.2) mg/dL 08/05/21 08/05/21 Range/Units 08:40 08:40 RBC 3.28 L (4.30-5.90) m/uL Hgb 9.4 L (13.0-17.5) gm/dL Hct 28.0 L (39.0-53.0) % Lymphocytes # 0.5 L (1.0-4.8) k/uL Sodium 134 L (137-145) mmol/L Carbon Dioxide 15 L (22-30) mmol/L BUN 71 H (9-20) mg/dL Creatinine 4.10 H (0.66-1.25) mg/dL Glucose 127 H (74-99) mg/dL POC Glucose (mg/dL) (75-99) mg/dL Calcium 8.1 L (8.4-10.2) mg/dL Assessment and Plan Assessment: Impression 1. Acute kidney injury secondary to cardiorenal syndrome. Currently on Lasix with improvement in shortness of breath but worsening creatinine up to 4.1 from 3.5 2. 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 Baseline creatinine is 2.7 per patient's history dates not clear but has been worsening recently 2 up to 3. was Off of Lasix because of this by his cardiac/vascular sonographer Dr. Lyle at [place]. Urine protein to creatinine ratio is 1.3 g 3. Coronary artery disease status post bypass in the remote past. 4. History of pacer 5. 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 History of BKA 2013 on the left. 7. Mild degree of non-gap acidosis. Etiology is acute and chronic kidney disease. Bicarb is 15 gap is 11 8. Anemia of chronic illness. He was 8.9 rule out an deficiency Recommendation 1. Maintain Lasix,-40 every 12 and check strict I's and O's. 2. Check iron saturation. 3. Continue sodium bicarb 650 4 times a day currently on twice a day dose will increase the dose. 4. Regarding cardiac catheterization hold until we can stabilize his creatinine. Patient is agreeable to undergo cardiac catheterization necessary and understand the risk of ATN possibly, and further going on for dialysis although the possibilities in small that he'll require dialysis of the cardiac catheterization Thank you for this consultation and we'll continue to follow
--- NOTE | 2021-08-05 10:36 | ECHOF ---
Referral Reason:LV function MEASUREMENTS -------- HEIGHT: 175.3 cm WEIGHT: 102.5 kg BP: RVIDd: 4.6 cm (< 3.3) IVSd: 1.4 cm (0.6 - 1.1) LVIDd: 5.0 cm (3.9 - 5.3) LVPWd: 2.1 cm (0.6 - 1.1) IVSs: 1.9 cm LVIDs: 4.3 cm LVPWs: 2.0 cm LAESV Index (A-L): 37.44 ml/m Ao Diam: 3.7 cm (2.0 - 3.7) AV Cusp: 2.0 cm (1.5 - 2.6) LA Diam: 4.5 cm (2.7 - 3.8) MV EXCURSION: 20.824 mm (> 18.000) MV EF SLOPE: 34 mm/s (70 - 150) EPSS: 0.9 cm MV E Efrem: 0.98 m/s MV DecT: 174 ms MV A Efrem: 0.52 m/s MV E/A Ratio: 1.88 RAP: 5.00 mmHg RVSP: 57.06 mmHg FINDINGS -------- Paced rhythm. This was a techncally difficult study with suboptimal views, , Lumason utilized for enhancement of im ages. The left ventricular size is normal. There is moderate concentric left ventricular hypertrophy. O verall left ventricular systolic function is severely impaired with, an EF between 20 - 25 %. The right ventricle is severely enlarged. LA is moderately dilated 34-39 ml/m2 The right atrial size is normal. There is mild aortic valve sclerosis. There is no evidence of aortic regurgitation. Mild mitral regurgitation is present. Moderate tricuspid regurgitation present. There is moderate to severe pulmonary hypertension. The right ventricular systolic pressure, as measured by Doppler, is 57.06mmHg. Trace/mild (physiologic) pulmonic regurgitation. There is a trivial pericardial effusion present. Small Pleural Effusion. CONCLUSIONS -------- 1. The left ventricular size is normal. 2. There is moderate concentric left ventricular hypertrophy. 3. Overall left ventricular systolic function is severely impaired with, an EF between 20 - 25 %. 4. The right ventricle is severely enlarged. 5. LA is moderately dilated 34-39 ml/m2 6. The right atrial size is normal. 7. There is mild aortic valve sclerosis. 8. Mild mitral regurgitation is present. 9. Moderate tricuspid regurgitation present. 10. There is moderate to severe pulmonary hypertension. 11. The right ventricular systolic pressure, as measured by Doppler, is 57.06mmHg. 12. Trace/mild (physiologic) pulmonic regurgitation. 13. There is a trivial pericardial effusion present. 14. Small Pleural Effusion. TAX EXAMINING TECHNICIAN: Betsy Nelson RDCS
--- NOTE | 2021-08-05 11:47 | P.PN ---
Subjective Progress Note Date: 08/05/21 Principal diagnosis: Shortness of breath. Pulmonary consultation dated 08/04/2021. 66-year-old male, who was sent down from [facility], for difficulty breathing. The patient was apparently to have a cardiac catheterization. Because of poor kidney function, the patient was receiving IV hydration. The patient's cardiac catheterization was canceled because of some abnormal blood work, and he did not receive his usual Lasix dose. Because of that reason, the patient became short of breath, and developed congestive heart failure. The patient was admitted to the hospital, given oxygen therapy, and Lasix. The patient is feeling much better. She is much less short of breath. He denies any chest pain or chest pressure. He also denies any fever or chills. Curren tljonny, white count is 5.5, hemoglobin 8.9, hematocrit 26.6, and platelet count 171,000. Sodium 134, potassium 4.8, chlorides 108, CO2 15, anion gap 11, BUN and creatinine 58 and 3.53. Troponin was 0.017. N-terminal proBNP was 10,100. For some reason, a ventilation perfusion lung scan was ordered. It was low probability for PE. Chest x-ray was consistent with CHF. There was also cardiomegaly, and a small left-sided pleural effusion. Cardiac pacemaker was also noted. The patient has a history of congestive heart failure, diabetes mellitus, hypertension, chronic kidney disease, bypass grafting, pacemaker insertion, and below the knee amputation. Progress note dated 08/15/2021. 66-year-old male that we saw yesterday in consultation. The patient was admitted with a diagnosis of shortness of breath, secondary to fluid overload/CHF. He apparently was seen by nephrology today. The glue cook did mention the possibility of hemodialysis down the road. The patient was a little upset. He is on 2 L. Saturations are 87%. We increased him up to 3 L. The patient is still making urine. White count 7.6, hemoglobin 9.4, hematocrit 28, platelet count 202,000. Sodium 134, potassium 4.8, chlorides 107, CO2 15, anion gap 12, BUN 71, and creatinine 4.10. No chest x-ray to report on. Objective - Vital Signs Vital signs: Vital Signs Temp 97.4 F L 08/05/21 04:00 Pulse 65 08/05/21 04:00 Resp 17 08/05/21 04:00 BP 123/52 08/05/21 04:00 Pulse Ox 93 L 08/05/21 04:00 Intake & Output 08/04/21 08/05/21 08/05/21 18:59 06:59 18:59 Intake Total 420 240 Output Total 875 700 Balance -455 -700 240 Weight 102.6 kg 102.4 kg Intake: Oral 420 240 Output: Urine 875 700 Other: Voiding Method Ileal Conduit (Right) # Voids 1 - Exam No acute distress, oriented 3. 2 L saturation is 88 %. HEENT examination is grossly unremarkable. Neck supple. Full range of motion. No adenopathy thyromegaly or neck vein distention. Cardiovascular examination reveals regular rhythm rate. S1-S2 normal. No S3 or S4. No discernible murmur noted. Heart sounds are very distant. Heart rate 65 bpm. Lungs reveal bibasilar crackles. No wheezes or rhonchi. Breath sounds equal bilaterally. Abdomen soft bowel sounds are heard. No masses or tenderness. Extremities are intact. No cyanosis or clubbing. No significant edema. Below the knee amputation noted on the left. Skin is without rash or lesion. Neurologic examination is brief but nonfocal. - Labs CBC & Chem 7: 08/05/21 08:40 08/05/21 08:40 Labs: Abnormal Lab Results - Last 24 Hours (Table) 08/04/21 08/04/21 08/05/21 Range/Units 16:35 20:37 06:04 RBC (4.30-5.90) m/uL Hgb (13.0-17.5) gm/dL Hct (39.0-53.0) % Lymphocytes # (1.0-4.8) k/uL Sodium (137-145) mmol/L Carbon Dioxide (22-30) mmol/L BUN (9-20) mg/dL Creatinine (0.66-1.25) mg/dL Glucose (74-99) mg/dL POC Glucose (mg/dL) 115 H 161 H 100 H (75-99) mg/dL Calcium (8.4-10.2) mg/dL 08/05/21 08/05/21 Range/Units 08:40 08:40 RBC 3.28 L (4.30-5.90) m/uL Hgb 9.4 L (13.0-17.5) gm/dL Hct 28.0 L (39.0-53.0) % Lymphocytes # 0.5 L (1.0-4.8) k/uL Sodium 134 L (137-145) mmol/L Carbon Dioxide 15 L (22-30) mmol/L BUN 71 H (9-20) mg/dL Creatinine 4.10 H (0.66-1.25) mg/dL Glucose 127 H (74-99) mg/dL POC Glucose (mg/dL) (75-99) mg/dL Calcium 8.1 L (8.4-10.2) mg/dL Assessment and Plan Assessment: Acute hypoxemic respiratory failure, secondary to acute pulmonary edema/CHF. History of CHF. History of diabetes mellitus. History of hypertension. History of chronic kidney disease. Status post bypass grafting for CAD. Prior history of heart catheterization. History of pacemaker implantation. History of left BKA. Plan: Plan dated 08/04/2021. Currently, the patient's doing much better. The patient is not receiving any IV fluids. He's only on 2 L nasal cannula. Saturations are excellent. He is clinically improved. He did receive some Lasix. His pattern on chest x-ray was consistent with fluid overload/CHF. Chronic lung disease. Patient is a lifelong nontobacco user. Plan dated 08/15/2021. Currently, the patient's saturation on 2 L is only 87-88%. We'll bump up the oxygen to 3 L. The patient has been seen by nephrology. The glue cook apparently did mention the possibility of hemodialysis down the road. The patient is still currently making urine. Additional recommendations and suggestions are forthcoming. We will continue to follow make recommendations where appropriate. Time with Patient: Less than 30
[2021-08-05 12:44] LABS: % Iron Saturation 6.25 (15.00-50.00)
[2021-08-05 13:36] LABS: Glucose,Whole Blood 187 mg/dL (75-99)
[2021-08-05 15:01] LABS: Hemoglobin A1C 5.4 % (4.0-6.0)
[2021-08-05 17:08] LABS: Glucose,Whole Blood 144 mg/dL (75-99)
--- NOTE | 2021-08-05 17:38 | P.PN ---
Subjective Progress Note Date: 08/05/21 Principal diagnosis: Acute hypoxemic respiratory failure Acute pulmonary edema/CHF 66-year-old male who presents to us from [facility] they saw him up there for difficulty breathing today. Patient's past medical history is consistent with diabetes congestive heart failure bypass surgery a BKA on the left. Patient had a recent stress test that was abnormal so they wanted to a cardiac catheterization however when he was in the hospital his kidney function was off so they wanted the patient to stop his Lasix on so they were followed up in the maybe his kidney function would improve and they would feel more comfortable doing the catheterization. Patient states however over the last 2 or 3 days the he has had more difficulty breathing and so they went to the [place] emergency department. While in the department he was oxygenating about 90% on room air his BNP was over 8000 his d-dimer was elevated at 3.78 and his creatinine was 3.5 patient was unable to get a CAT scan because of the elevated creatinine so I started the patient on heparin and decided to send the patient to us. Patient normally would go to [facility] but [facility] was full and they tried [facility] but [facility] is full so he came to our facility. Patient denies any current chest pain but does complain of difficulty breathing 08/05/2021 The patient is admitted with fluid overload/CHF, worsening renal failure and unstable angina. Patient's renal function continues to worsen and creatinine is up to 4.1 this morning. The veterinary practitioner did mention the possibility of hemodialysis down the road. Patient continues to complain of shortness of breath and hypoxic on 2 L O2 per nasal cannula which has been increased to increased to 3 L. The patient is still making urine. White count 7.6, hemoglobin 9.4, hematocrit 28, platelet count 202,000. Sodium 134, potassium 4.8, chlorides 107, CO2 15, anion gap 12, BUN 71, and creatinine 4.10. No chest x-ray to report on. Nephrology recommending to continue with Lasix 40 mg every 12 hours; monitor strict RHODA's and daily weights; iron studies at ordered and pending; bicarbonate is increased from twice a day up to 4 times a day dosing; nephrology recommending to hold cardiac catheterization till creatinine stabilizes Objective - Vital Signs Vital signs: Vital Signs Temp 97.4 F L 08/05/21 04:00 Pulse 65 08/05/21 04:00 Resp 17 08/05/21 04:00 BP 123/52 08/05/21 04:00 Pulse Ox 93 L 08/05/21 04:00 Intake & Output 08/04/21 08/05/21 08/05/21 18:59 06:59 18:59 Intake Total 420 240 Output Total 875 700 Balance -455 -700 240 Weight 102.6 kg 102.4 kg Intake: Oral 420 240 Output: Urine 875 700 Other: Voiding Method Ileal Conduit (Right) # Voids 1 - Exam - Constitutional General appearance: Present: average body habitus, cooperative, no acute distress - EENT Eyes: Present: anicteric sclerae, EOMI, PERRLA, normal appearance ENT: Present: hearing grossly normal, normal oropharynx Ears: bilateral: normal - Neck Neck: Present: normal ROM. Absent: lymphadenopathy, rigidity, thyromegaly Carotids: negative: bruit present Thyroid: bilateral: normal size, negative: enlarged, nodule - Respiratory Respiratory: bilateral: CTA, negative: rales, rhonchi, wheezing - Cardiovascular Rhythm: regular Heart sounds: normal: S1, S2 Abnormal Heart Sounds: Absent: systolic murmur, diastolic murmur - Gastrointestinal General gastrointestinal: Present: normal bowel sounds, soft. Absent: distended, organomegaly, tenderness - Genitourinary Genitourinary Comment(s): deferred - Integumentary Integumentary: Present: normal turgor. Absent: jaundiced, rash, ulcer - Neurologic Neurologic: Present: CNII-XII intact. Absent: focal deficits - Musculoskeletal Musculoskeletal: Present: gait normal, strength equal bilaterally - Psychiatric Psychiatric: Present: A&O x's 3, appropriate affect, intact judgment & insight - Labs CBC & Chem 7: 08/05/21 08:40 08/05/21 08:40 Labs: Abnormal Lab Results - Last 24 Hours (Table) 08/04/21 08/04/21 08/05/21 Range/Units 16:35 20:37 06:04 RBC (4.30-5.90) m/uL Hgb (13.0-17.5) gm/dL Hct (39.0-53.0) % Lymphocytes # (1.0-4.8) k/uL Sodium (137-145) mmol/L Carbon Dioxide (22-30) mmol/L BUN (9-20) mg/dL Creatinine (0.66-1.25) mg/dL Glucose (74-99) mg/dL POC Glucose (mg/dL) 115 H 161 H 100 H (75-99) mg/dL Calcium (8.4-10.2) mg/dL 08/05/21 08/05/21 Range/Units 08:40 08:40 RBC 3.28 L (4.30-5.90) m/uL Hgb 9.4 L (13.0-17.5) gm/dL Hct 28.0 L (39.0-53.0) % Lymphocytes # 0.5 L (1.0-4.8) k/uL Sodium 134 L (137-145) mmol/L Carbon Dioxide 15 L (22-30) mmol/L BUN 71 H (9-20) mg/dL Creatinine 4.10 H (0.66-1.25) mg/dL Glucose 127 H (74-99) mg/dL POC Glucose (mg/dL) (75-99) mg/dL Calcium 8.1 L (8.4-10.2) mg/dL Assessment and Plan Assessment: 1. Acute pulmonary edema; patienton Lasix 20 mg IV every 12 hours; we will monitor strict RHODA's, daily weights; low-salt and fluid restricted diet; cardiology consulted for further recommendations 2. Acute renal failure; concerns about worsening renal failure given acute pulmonary edema and need for diuresis; we will monitor strict RHODA's, daily weights, renal function and electrolytes; avoid nephrotoxins and hypotension; nephrology is consulted 3. Elevated d-dimer; rule out PE; patient is in acute renal failure, CTA chest not ordered, patient is to undergo VQ scanning; patient has been placed on IV heparin per protocol; further recommendations after VQ scan is completed 4. Acute hypoxic respiratory failure; multifactorial, acute pulmonary edema versus possible PE; VQ scan is ordered and pending; we will place patient on IV heparin per protocol if VQ scan is high probability 5. Hypertension; blood pressures currently stable; we will monitor closely with further recommendations 6. Diabetes mellitus; monitor Accu-Cheks before meals and at bedtime with insulin sliding scale 7. CAD; patient is status post heart catheterization, CABG and pacemaker placement DVT prophylaxis; SCDs/subcu heparin CODE STATUS; full code
[2021-08-05] MEDS: ALPRAZolam 0.5 MG TAB PO PRN (17:52)
[2021-08-05 20:46] LABS: Glucose,Whole Blood 186 mg/dL (75-99)
[2021-08-05] MEDS: PRAVASTATIN SODIUM 20 MG TAB PO SCH (20:47)
[2021-08-05] MEDS: ASPIRIN 81 MG PO SCH (20:47)
[2021-08-06] MEDS: INSULIN ASPART (NovoLOG) 100 UNIT/ML VIAL SQ SCH ×4 (06:35→21:00)
[2021-08-06 06:36] LABS: Glucose,Whole Blood 116 mg/dL (75-99)
[2021-08-06 08:39] LABS: Calcium 7.8 mg/dL (8.4-10.2); Magnesium 2.2 mg/dL (1.6-2.3); Potassium 4.1 mmol/L (3.5-5.1)
--- NOTE | 2021-08-06 09:22 | P.PN ---
Subjective Progress Note Date: 08/06/21 Principal diagnosis: Heart failure of unknown etiology The patient was seen this morning. He continues today is very well. The chest examination is better and he has less crackles compared to the day before. He is on dialysis and nephrology service continues to be on the case. The echo revealed severe LV dysfunction with EF around 20%. He is on beta jeff which we will continue but I am going to add a small dose of GENEVA inhibitor with lisinopril. We'll continue following up with the patient. Objective - Vital Signs Vital signs: Vital Signs Temp 98.0 F 08/06/21 04:00 Pulse 67 08/06/21 04:00 Resp 20 08/06/21 04:00 BP 125/57 08/06/21 04:00 Pulse Ox 91 L 08/06/21 04:00 Intake & Output 08/05/21 08/06/21 08/06/21 18:59 06:59 18:59 Intake Total 820 240 Output Total 550 1100 Balance 270 -860 Weight 102.1 kg Intake: Oral 820 240 Output: Urine 550 1100 Other: Voiding Method Ileal Conduit (Right) Ileal Conduit (Right) # Voids 0 # Bowel Movements 0 0 - Constitutional General appearance: Present: no acute distress - Respiratory Respiratory: bilateral: CTA - Cardiovascular Rhythm: regular Heart sounds: normal: S1, S2 Abnormal Heart Sounds: Present: systolic murmur - Labs CBC & Chem 7: 08/05/21 08:40 08/06/21 08:05 Labs: Abnormal Lab Results - Last 24 Hours (Table) 08/05/21 08/05/21 08/05/21 Range/Units 07:28 08:40 13:34 RBC 3.28 L (4.30-5.90) m/uL Hgb 9.4 L (13.0-17.5) gm/dL Hct 28.0 L (39.0-53.0) % Lymphocytes # 0.5 L (1.0-4.8) k/uL Sodium (137-145) mmol/L Carbon Dioxide (22-30) mmol/L BUN (9-20) mg/dL Creatinine (0.66-1.25) mg/dL Glucose (74-99) mg/dL POC Glucose (mg/dL) 187 H (75-99) mg/dL Calcium (8.4-10.2) mg/dL Iron 16 L (65-175) ug/dL % Saturation 6.25 L (15.00-50.00) 08/05/21 08/05/21 08/06/21 Range/Units 17:07 20:37 06:30 RBC (4.30-5.90) m/uL Hgb (13.0-17.5) gm/dL Hct (39.0-53.0) % Lymphocytes # (1.0-4.8) k/uL Sodium (137-145) mmol/L Carbon Dioxide (22-30) mmol/L BUN (9-20) mg/dL Creatinine (0.66-1.25) mg/dL Glucose (74-99) mg/dL POC Glucose (mg/dL) 144 H 186 H 116 H (75-99) mg/dL Calcium (8.4-10.2) mg/dL Iron (65-175) ug/dL % Saturation (15.00-50.00) 08/06/21 Range/Units 08:05 RBC (4.30-5.90) m/uL Hgb (13.0-17.5) gm/dL Hct (39.0-53.0) % Lymphocytes # (1.0-4.8) k/uL Sodium 134 L (137-145) mmol/L Carbon Dioxide 17 L (22-30) mmol/L BUN 82 H (9-20) mg/dL Creatinine 4.24 H (0.66-1.25) mg/dL Glucose 149 H (74-99) mg/dL POC Glucose (mg/dL) (75-99) mg/dL Calcium 7.8 L (8.4-10.2) mg/dL Iron (65-175) ug/dL % Saturation (15.00-50.00) Assessment and Plan Assessment: Assessment #1 congestive heart failure exacerbation related to heart failure with reduced ejection fraction #2 coronary artery disease and status post CABG #3 peripheral arterial disease and status post left below the knee amputation #4 severe cardiomyopathy. The most recent echo showed an EF of 20% Plan #1 continue the current dose of Lasix IV #2 continue dialysis. Nephrology is on the case #3 add small dose of lisinopril #4 continue the current dose of metoprolol #5 follow-up with the patient
[2021-08-06] MEDS: FUROSEMIDE 10 MG/ML 4 ML VIAL IV SCH ×2 (09:52→20:59)
[2021-08-06] MEDS: SODIUM BICARBONATE TAB 650 MG TAB PO SCH ×4 (09:52→21:00)
[2021-08-06] MEDS: METOPROLOL TARTRATE 50 MG TAB PO SCH ×2 (09:52→21:00)
[2021-08-06] MEDS: hydrALAZINE HCL 50 MG TAB PO SCH ×3 (09:53→21:00)
[2021-08-06] MEDS: amLODIPine 10 MG TAB PO SCH (09:53)
--- NOTE | 2021-08-06 11:06 | P.PN ---
Subjective Progress Note Date: 08/06/21 Principal diagnosis: This is a 66-year-old male seen in consultation because of acute kidney injury and chronic kidney disease. He was admitted with shortness of breath. He is known with chronic kidney disease, he is under the care of Dr. Lyle at [place], his baseline creatinine supposedly 2.7 but the last few weeks it has been going up. As an outpatient, His Lasix was therefore discontinued to see if his creatinine would improve. Consequently he had shortness of breath and edema and was admitted His creatinine here on admission was 3.53. His x-ray on admission showed congestive heart failure. He was started on Lasix. He responded with improved urine output, although his creatinine continues to go up. Creatinine has gone up to 4.1 yesterday and 4.24 as of this morning He is known with diabetes for 15 years, has had very artery bypass graft and pacer in the past he left BKA in 2013 EC of the bladder with urostomy in 2018. Supposedly and recent ultrasound a few weeks ago was unremarkable for any hydronephrosis. Objective - Vital Signs Vital signs: Vital Signs Temp 97.9 F 08/06/21 09:40 Pulse 60 08/06/21 09:40 Resp 16 08/06/21 09:40 BP 148/60 08/06/21 09:40 Pulse Ox 96 08/06/21 09:40 Intake & Output 08/05/21 08/06/21 08/06/21 18:59 06:59 18:59 Intake Total 820 240 Output Total 550 1100 Balance 270 -860 Weight 102.1 kg Intake: Oral 820 240 Output: Urine 550 1100 Other: Voiding Method Ileal Conduit (Right) Ileal Conduit (Right) Ileal Conduit (Right) # Voids 0 # Bowel Movements 0 0 On exam he is awake alert oriented HEENT exam no JVP neck is supple no facial asymmetry Lungs are significant for occasional coarse crackle at bases fairly good air entry bilaterally Heart sounds unremarkable for any murmur rub gallop Abdomen soft nontender nondistended. He has a urostomy bag Extremity examination reveals left BKA remote and the right leg has minimal edema. Neurologically awake alert oriented. - Labs CBC & Chem 7: 08/05/21 08:40 08/06/21 08:05 Labs: Abnormal Lab Results - Last 24 Hours (Table) 08/05/21 08/05/21 08/05/21 Range/Units 07:28 13:34 17:07 Sodium (137-145) mmol/L Carbon Dioxide (22-30) mmol/L BUN (9-20) mg/dL Creatinine (0.66-1.25) mg/dL Glucose (74-99) mg/dL POC Glucose (mg/dL) 187 H 144 H (75-99) mg/dL Calcium (8.4-10.2) mg/dL Iron 16 L (65-175) ug/dL % Saturation 6.25 L (15.00-50.00) 08/05/21 08/06/21 08/06/21 Range/Units 20:37 06:30 08:05 Sodium 134 L (137-145) mmol/L Carbon Dioxide 17 L (22-30) mmol/L BUN 82 H (9-20) mg/dL Creatinine 4.24 H (0.66-1.25) mg/dL Glucose 149 H (74-99) mg/dL POC Glucose (mg/dL) 186 H 116 H (75-99) mg/dL Calcium 7.8 L (8.4-10.2) mg/dL Iron (65-175) ug/dL % Saturation (15.00-50.00) Assessment and Plan Assessment: Impression 1. Acute kidney injury secondary to cardiorenal syndrome. Currently on Lasix with improvement in shortness of breath but worsening creatinine up to 4.24 from 3.5. Although subjectively he has improved with less shortness of breath. No evidence of uremic symptoms 2. 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 Baseline creatinine is 2.7 per patient's history dates not clear but has been worsening recently 2 up to 3. was Off of Lasix because of this by his radiology director Dr. Lyle at [place]. Urine protein to creatinine ratio is 1.3 g 3. Coronary artery disease status post bypass in the remote past. 4. History of pacer 5. 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 History of BKA 2013 on the left. 7. Mild degree of non-gap acidosis. Etiology is acute and chronic kidney disease. Bicarb slightly better 17 from 15 8. Anemia of chronic illness. Hemoglobin is 9.4 9. Iron deficiency with iron saturation of 6% on 08/05/2021 Recommendation 1. Maintain Lasix,-40 every 12 and check strict I's and O's. 2. Continue sodium bicarb 650 4 times a day 3. Begin him 1 dose of IV Ferrlecit 125 mg in 4. Regarding cardiac catheterization hold until we can stabilize his creatinine. Patient is agreeable to undergo cardiac catheterization necessary and understand the risk of ATN possibly, and further going on for dialysis although the possibilities in small that he'll require dialysis of the cardiac catheterization. 5. Hold ACEI for now Thank you for this consultation and we'll continue to follow
[2021-08-06 11:46] LABS: Glucose,Whole Blood 144 mg/dL (75-99)
--- NOTE | 2021-08-06 12:21 | P.PN ---
Subjective Progress Note Date: 08/06/21 Principal diagnosis: Shortness of breath. Pulmonary consultation dated 08/04/2021. 66-year-old male, who was sent down from [facility], for difficulty breathing. The patient was apparently to have a cardiac catheterization. Because of poor kidney function, the patient was receiving IV hydration. The patient's cardiac catheterization was canceled because of some abnormal blood work, and he did not receive his usual Lasix dose. Because of that reason, the patient became short of breath, and developed congestive heart failure. The patient was admitted to the hospital, given oxygen therapy, and Lasix. The patient is feeling much better. She is much less short of breath. He denies any chest pain or chest pressure. He also denies any fever or chills. Curren tljonny, white count is 5.5, hemoglobin 8.9, hematocrit 26.6, and platelet count 171,000. Sodium 134, potassium 4.8, chlorides 108, CO2 15, anion gap 11, BUN and creatinine 58 and 3.53. Troponin was 0.017. N-terminal proBNP was 10,100. For some reason, a ventilation perfusion lung scan was ordered. It was low probability for PE. Chest x-ray was consistent with CHF. There was also cardiomegaly, and a small left-sided pleural effusion. Cardiac pacemaker was also noted. The patient has a history of congestive heart failure, diabetes mellitus, hypertension, chronic kidney disease, bypass grafting, pacemaker insertion, and below the knee amputation. Progress note dated 08/15/2021. 66-year-old male that we saw yesterday in consultation. The patient was admitted with a diagnosis of shortness of breath, secondary to fluid overload/CHF. He apparently was seen by nephrology today. The mining machinery assembler did mention the possibility of hemodialysis down the road. The patient was a little upset. He is on 2 L. Saturations are 87%. We increased him up to 3 L. The patient is still making urine. White count 7.6, hemoglobin 9.4, hematocrit 28, platelet count 202,000. Sodium 134, potassium 4.8, chlorides 107, CO2 15, anion gap 12, BUN 71, and creatinine 4.10. No chest x-ray to report on. Progress note dated 08/06/2021. Currently, the patient's doing about the same as he was yesterday. Mildly short of breath. He's on 2 L. He has been seen by nephrology. Possible discharge tomorrow according to him. Laboratory data includes a sodium 134, potassium 4.1, chlorides 107, CO2 17, anion gap 10, BUN 82, and creatinine 4.24. No recent chest x-ray to review. 2 L saturation is 95%. Objective - Vital Signs Vital signs: Vital Signs Temp 98.0 F 08/06/21 11:20 Pulse 62 08/06/21 11:20 Resp 16 08/06/21 11:20 BP 138/61 08/06/21 11:20 Pulse Ox 95 08/06/21 11:20 Intake & Output 08/05/21 08/06/21 08/06/21 18:59 06:59 18:59 Intake Total 820 240 Output Total 550 1225 Balance 270 -985 Weight 102.1 kg Intake: Oral 820 240 Output: Urine 550 1225 Other: Voiding Method Ileal Conduit (Right) Ileal Conduit (Right) Ileal Conduit (Right) # Voids 0 # Bowel Movements 0 0 - Exam No acute distress, oriented 3. 2 L saturation is 95 %. HEENT examination is grossly unremarkable. Neck supple. Full range of motion. No adenopathy thyromegaly or neck vein distention. Cardiovascular examination reveals regular rhythm rate. S1-S2 normal. No S3 or S4. No discernible murmur noted. Heart sounds are very distant. Heart rate 62 bpm. Lungs reveal bibasilar crackles. No wheezes or rhonchi. Breath sounds equal bilaterally. Abdomen soft bowel sounds are heard. No masses or tenderness. Extremities are intact. No cyanosis or clubbing. No significant edema. Below the knee amputation noted on the left. Skin is without rash or lesion. Neurologic examination is brief but nonfocal. - Labs CBC & Chem 7: 08/05/21 08:40 08/06/21 08:05 Labs: Abnormal Lab Results - Last 24 Hours (Table) 08/05/21 08/05/21 08/05/21 Range/Units 07:28 13:34 17:07 Sodium (137-145) mmol/L Carbon Dioxide (22-30) mmol/L BUN (9-20) mg/dL Creatinine (0.66-1.25) mg/dL Glucose (74-99) mg/dL POC Glucose (mg/dL) 187 H 144 H (75-99) mg/dL Calcium (8.4-10.2) mg/dL Iron 16 L (65-175) ug/dL % Saturation 6.25 L (15.00-50.00) 08/05/21 08/06/21 08/06/21 Range/Units 20:37 06:30 08:05 Sodium 134 L (137-145) mmol/L Carbon Dioxide 17 L (22-30) mmol/L BUN 82 H (9-20) mg/dL Creatinine 4.24 H (0.66-1.25) mg/dL Glucose 149 H (74-99) mg/dL POC Glucose (mg/dL) 186 H 116 H (75-99) mg/dL Calcium 7.8 L (8.4-10.2) mg/dL Iron (65-175) ug/dL % Saturation (15.00-50.00) 08/06/21 Range/Units 11:44 Sodium (137-145) mmol/L Carbon Dioxide (22-30) mmol/L BUN (9-20) mg/dL Creatinine (0.66-1.25) mg/dL Glucose (74-99) mg/dL POC Glucose (mg/dL) 144 H (75-99) mg/dL Calcium (8.4-10.2) mg/dL Iron (65-175) ug/dL % Saturation (15.00-50.00) Assessment and Plan Assessment: Acute hypoxemic respiratory failure, secondary to acute pulmonary edema/CHF. History of CHF. History of diabetes mellitus. History of hypertension. History of chronic kidney disease. Status post bypass grafting for CAD. Prior history of heart catheterization. History of pacemaker implantation. History of left BKA. Plan: Plan dated 08/04/2021. Currently, the patient's doing much better. The patient is not receiving any IV fluids. He's only on 2 L nasal cannula. Saturations are excellent. He is clinically improved. He did receive some Lasix. His pattern on chest x-ray was consistent with fluid overload/CHF. Chronic lung disease. Patient is a lifelong nontobacco user. Plan dated 08/05/2021. Currently, the patient's saturation on 2 L is only 87-88%. We'll bump up the oxygen to 3 L. The patient has been seen by nephrology. The mining machinery assembler apparently did mention the possibility of hemodialysis down the road. The patient is still currently making urine. Additional recommendations and suggestions are forthcoming. We will continue to follow make recommendations where appropriate. Plan dated 08/06/2021. From the pulmonary perspective, the patient is doing well. We don't believe the patient has any significant pulmonary disease. He will follow-up with his prim jeffrey doctor, and nephrology. Additional recommendations and suggestions are forthcoming. Prognosis is guarded. He understands that in the future, he may need dialysis. Time with Patient: Less than 30
--- NOTE | 2021-08-06 14:55 | P.PN ---
Subjective 66-year-old male who presents to us from [facility] they saw him up there for difficulty breathing today. Patient's past medical history is consistent with diabetes congestive heart failure bypass surgery a BKA on the left. Patient had a recent stress test that was abnormal so they wanted to a cardiac catheterization however when he was in the hospital his kidney function was off so they wanted the patient to stop his Lasix on so they were followed up in the maybe his kidney function would improve and they would feel more comfortable doing the catheterization. Patient states however over the last 2 or 3 days the he has had more difficulty breathing and so they went to the [place] emergency department. While in the department he was oxygenating about 90% on room air his BNP was over 8000 his d-dimer was elevated at 3.78 and his creatinine was 3.5 patient was unable to get a CAT scan because of the elevated creatinine so I started the patient on heparin and decided to send the patient to us. [facility] so he came to our facility. Patient denies any current chest pain but does complain of difficulty breathing 08/05/2021 The patient is admitted with fluid overload/CHF, worsening renal failure and unstable angina. Patient's renal function continues to worsen and creatinine is up to 4.1 this morning. The chest painting leader did mention the possibility of hemodialysis down the road. Patient continues to complain of shortness of breath and hypoxic on 2 L O2 per nasal cannula which has been increased to increased to 3 L. The patient is still making urine. White count 7.6, hemoglobin 9.4, hematocrit 28, platelet count 202,000. Sodium 134, potassium 4.8, chlorides 107, CO2 15, anion gap 12, BUN 71, and creatinine 4.10. No chest x-ray to report on. Nephrology recommending to continue with Lasix 40 mg every 12 hours; monitor strict RHODA's and daily weights; iron studies at ordered and pending; bicarbonate is increased from twice a day up to 4 times a day dosing; nephrology recommending to hold cardiac catheterization till creatinine stabilizes. 08/06/21 Patient is a pleasant 66 years old male who presents with respiratory distress secondary to acute systolic CHF with ejection fraction 20-25% been evaluated by editor index who recommended cardiac cath however that is on hold because of his worsening acute kidney injury on the top of his chronic kidney disease stage III. Worse at 4.2 with baseline around 2.5. Patient was 3.0. Senior Care Provider added IV iron for him for his anemia however his hemoglobin has been a stable 8.9-9.4. Echocardiogram showed ejection fraction of 20-25% and his proBNP is elevated troponin thousand 900. He is saturating 92% on 2 L oxygen via nasal cannula. His maintained on IV Lasix 40 mg twice daily, also he is currently on metoprolol 100 mg, twice daily. Hydralazine 50 mg twice daily and Norvasc 10 mg daily. Aspirin 81 mg. Lisinopril/GENEVA inhibitor because of his worsening kidney function. Patient is Monitored closely by cardiology and nephrology team. Pulmonary team are signed and off check ultrasound of the legs Objective - Vital Signs Vital signs: Vital Signs Temp 98.0 F 08/06/21 11:20 Pulse 62 08/06/21 11:20 Resp 16 08/06/21 11:20 BP 138/61 08/06/21 11:20 Pulse Ox 95 08/06/21 11:20 Intake & Output 08/05/21 08/06/21 08/06/21 18:59 06:59 18:59 Intake Total 820 240 Output Total 550 1225 Balance 270 -985 Weight 102.1 kg Intake: Oral 820 240 Output: Urine 550 1225 Other: Voiding Method Ileal Conduit (Right) Ileal Conduit (Right) Ileal Conduit (Right) # Voids 0 # Bowel Movements 0 0 - Exam -GENERAL: The patient is alert and oriented x3, not in any acute distress. Obesity HEENT: Pupils are round and equally reacting to light. EOMI. No scleral icterus. No conjunctival pallor. Normocephalic, atraumatic. No pharyngeal erythema. No thyromegaly. CARDIOVASCULAR: S1 and S2 present. No murmurs, rubs, or gallops. -PULMONARY: Chest is clear to auscultation, no wheezing or crackles. Bilateral basal crepitation ABDOMEN: Soft, nontender, nondistended, normoactive bowel sounds. No palpable organomegaly. MUSCULOSKELETAL: No joint swelling or deformity. -EXTREMITIES: No cyanosis, clubbing, . Bilateral pitting leg edema NEUROLOGICAL: Gross neurological examination did not reveal any focal deficits. SKIN: No rashes. no petechiae. - Labs CBC & Chem 7: 08/05/21 08:40 08/06/21 08:05 Labs: Abnormal Lab Results - Last 24 Hours (Table) 08/05/21 08/05/21 08/05/21 Range/Units 13:34 17:07 20:37 Sodium (137-145) mmol/L Carbon Dioxide (22-30) mmol/L BUN (9-20) mg/dL Creatinine (0.66-1.25) mg/dL Glucose (74-99) mg/dL POC Glucose (mg/dL) 187 H 144 H 186 H (75-99) mg/dL Calcium (8.4-10.2) mg/dL 08/06/21 08/06/21 08/06/21 Range/Units 06:30 08:05 11:44 Sodium 134 L (137-145) mmol/L Carbon Dioxide 17 L (22-30) mmol/L BUN 82 H (9-20) mg/dL Creatinine 4.24 H (0.66-1.25) mg/dL Glucose 149 H (74-99) mg/dL POC Glucose (mg/dL) 116 H 144 H (75-99) mg/dL Calcium 7.8 L (8.4-10.2) mg/dL Assessment and Plan Assessment: Assessment: 1. Acute pulmonary edema; patienton Lasix 40 mg IV every 12 hours; we will monitor strict RHODA's, daily weights; low-salt and fluid restricted diet; cardiology consulted for further recommendations. Ejection fraction of 20-25% 2. Acute renal failure; concerns about worsening renal failure given acute pulmonary edema and need for diuresis; we will monitor strict RHODA's, daily weights, renal function and electrolytes; avoid nephrotoxins and hypotension; nephrology is on the case and patient may need hemodialysis, he is aware 3. Elevated d-dimer; rule out PE; VQ scan is completed: Low probability for PE. We will check ultrasound of the leg 4. Acute hypoxic respiratory failure; multifactorial, acute pulmonary edema versus possible PE; VQ scan is ordered and pending; we will place patient on IV heparin per protocol if VQ scan is high probability 5. Hypertension; blood pressures currently stable; we will monitor closely with further recommendations 6. Diabetes mellitus; monitor Accu-Cheks before meals and at bedtime with insulin sliding scale 7. CAD; patient is status post heart catheterization, CABG and pacemaker avtar cement DVT prophylaxis; SCDs/subcu heparin CODE STATUS; full code
[2021-08-06] MEDS: HEPARIN SODIUM,PORCINE/PF 5,000 UNIT/0.5 ML SYRINGE SQ SCH ×2 (16:36→20:59)
[2021-08-06] MEDS: ALPRAZolam 0.5 MG TAB PO PRN (16:36)
[2021-08-06] MEDS: FAMOTIDINE 20 MG TAB PO SCH (16:36)
[2021-08-06 16:41] LABS: Glucose,Whole Blood 218 mg/dL (75-99)
[2021-08-06 20:30] LABS: Glucose,Whole Blood 180 mg/dL (75-99)
[2021-08-06] MEDS: ASPIRIN 81 MG PO SCH (20:59)
[2021-08-06] MEDS: PRAVASTATIN SODIUM 20 MG TAB PO SCH (21:00)
[2021-08-06] MEDS ORDERED: FAMOTIDINE 20 MG/2 ML VIAL IV SCH (21:00)
[2021-08-07 06:14] LABS: Glucose,Whole Blood 113 mg/dL (75-99)
[2021-08-07] MEDS: INSULIN ASPART (NovoLOG) 100 UNIT/ML VIAL SQ SCH ×4 (06:22→21:05)
--- NOTE | 2021-08-07 08:25 | US ---
EXAMINATION TYPE: US venous doppler duplex LE DATE OF EXAM: 08/07/2021 7:19 AM COMPARISON: NONE CLINICAL HISTORY: Bilateral leg swelling. Bilateral leg swelling. No hx of DVT. Patient takes baby as pirin. Left leg amputated from knee down. SIDE PERFORMED: Bilateral TECHNIQUE: The lower extremity deep venous system is examined utilizing real time linear array sonog jody with graded compression, doppler sonography and color-flow sonography. VESSELS IMAGED: Common Femoral Vein Deep Femoral Vein Greater Saphenous Vein * Femoral Vein Popliteal Vein Small Saphenous Vein * Proximal Calf Veins (* superficial vessels) Limited due to patient's pain tolerance. Right Leg: No evidence of DVT in veins imaged at this time. Unable to fully evaluate in transverse c ompression views due to patient's pain tolerance. Left Leg: No evidence of DVT in veins imaged at this time. Slightly limited posterior to the knee du e to patient positioning. IMPRESSION: 1. No diagnostic evidence of DVT as visualized.
[2021-08-07 08:31] LABS: Basophils % (A) 1 %; Eosinophils # (A) 0.1 k/uL (0-0.7); Eosinophils % (A) 2 %; HCT 27.6 % (39.0-53.0); Lymphocytes # (A) 0.5 k/uL (1.0-4.8); Lymphocytes % (A) 12 %; MCHC 32.7 g/dL (31.0-37.0); MCV 85.8 fL (80.0-100.0); Mean Platelet Volume 7.6; Monocytes # (A) 0.3 k/uL (0-1.0); Monocytes % (A) 6 %; Neutrophils # (A) 3.5 k/uL (1.3-7.7); Neutrophils % (A) 78 %; Platelet Count 238 k/uL (150-450); RBC 3.22 m/uL (4.30-5.90); RDW 14.7 % (11.5-15.5); WBC 4.5 k/uL (3.8-10.6)
[2021-08-07 08:59] LABS: Calcium 8.1 mg/dL (8.4-10.2); Magnesium 2.1 mg/dL (1.6-2.3); Potassium 4.3 mmol/L (3.5-5.1)
[2021-08-07] MEDS ORDERED: lisinopriL 5 MG TAB PO SCH (09:00)
[2021-08-07] MEDS: HEPARIN SODIUM,PORCINE/PF 5,000 UNIT/0.5 ML SYRINGE SQ SCH ×2 (10:02→21:05)
[2021-08-07] MEDS: ISOSORBIDE MONONITRATE ER 30 MG TAB.ER.24H PO SCH (10:03)
[2021-08-07] MEDS: hydrALAZINE HCL 50 MG TAB PO SCH (10:03)
[2021-08-07] MEDS: FAMOTIDINE 20 MG TAB PO SCH (10:03)
[2021-08-07] MEDS: FUROSEMIDE 10 MG/ML 4 ML VIAL IV SCH ×2 (10:03→17:08)
[2021-08-07] MEDS: SODIUM BICARBONATE TAB 650 MG TAB PO SCH ×4 (10:03→21:05)
[2021-08-07] MEDS: amLODIPine 5 MG TAB PO SCH (10:04)
[2021-08-07] MEDS: METOPROLOL TARTRATE 50 MG TAB PO SCH ×2 (10:04→21:05)
[2021-08-07] MEDS: ATORVASTATIN 40 MG TAB PO SCH (10:04)
[2021-08-07 11:21] LABS: Glucose,Whole Blood 138 mg/dL (75-99)
--- NOTE | 2021-08-07 12:59 | P.PN ---
Subjective 66-year-old male who presents to us from [facility] they saw him up there for difficulty breathing today. Patient's past medical history is consistent with diabetes congestive heart failure bypass surgery a BKA on the left. Patient had a recent stress test that was abnormal so they wanted to a cardiac catheterization however when he was in the hospital his kidney function was off so they wanted the patient to stop his Lasix on so they were followed up in the maybe his kidney function would improve and they would feel more comfortable doing the catheterization. Patient states however over the last 2 or 3 days the he has had more difficulty breathing and so they went to the [place] emergency department. While in the department he was oxygenating about 90% on room air his BNP was over 8000 his d-dimer was elevated at 3.78 and his creatinine was 3.5 patient was unable to get a CAT scan because of the elevated creatinine so I started the patient on heparin and decided to send the patient to us. [facility] and [facility] is full so he came to our facility. Patient denies any current chest pain but does complain of difficulty breathing 08/05/2021 The patient is admitted with fluid overload/CHF, worsening renal failure and unstable angina. Patient's renal function continues to worsen and creatinine is up to 4.1 this morning. The cable repairer did mention the possibility of hemodialysis down the road. Patient continues to complain of shortness of breath and hypoxic on 2 L O2 per nasal cannula which has been increased to increased to 3 L. The patient is still making urine. White count 7.6, hemoglobin 9.4, hematocrit 28, platelet count 202,000. Sodium 134, potassium 4.8, chlorides 107, CO2 15, anion gap 12, BUN 71, and creatinine 4.10. No chest x-ray to report on. Nephrology recommending to continue with Lasix 40 mg every 12 hours; monitor strict RHODA's and daily weights; iron studies at ordered and pending; bicarbonate is increased from twice a day up to 4 times a day dosing; nephrology recommending to hold cardiac catheterization till creatinine stabilizes. 08/06/21 Patient is a pleasant 66 years old male who presents with respiratory distress secondary to acute systolic CHF with ejection fraction 20-25% been evaluated by concrete rod buster who recommended cardiac cath however that is on hold because of his worsening acute kidney injury on the top of his chronic kidney disease stage III. Worse at 4.2 with baseline around 2.5. Patient was 3.0. Landscape And Yardwork Laborer added IV iron for him for his anemia however his hemoglobin has been a stable 8.9-9.4. Echocardiogram showed ejection fraction of 20-25% and his proBNP is elevated troponin thousand 900. He is saturating 92% on 2 L oxygen via nasal cannula. His maintained on IV Lasix 40 mg twice daily, also he is currently on metoprolol 100 mg, twice daily. Hydralazine 50 mg twice daily and Norvasc 10 mg daily. Aspirin 81 mg. Lisinopril/GENEVA inhibitor because of his worsening kidney function. Patient is Monitored closely by cardiology and nephrology team. Pulmonary team are signed and off check ultrasound of the legs 08/07/2021 Patient with minimal dyspnea, no chest pain. Patient improving and it looks more stable. Complaints or new complaint. On 2 L oxygen via nasal cannula oxygen saturation and 90s. His blood pressure was mildly elevated. Telephonic Case Manager increase his hydralazine 50 mg to 75 mg 3 times a day. His creatinine remains at 4.2 with cable repairer on the case considering hemodialysis Cardiac cath is considered by concrete rod buster however it is on hold because of his kidney disease. And leg ultrasound is negative for DVT. Also patient with anemia and receiving IV iron. That he never had colonoscopy before, I advised patient to follow-up with his PCP for screening colonoscopy as an outpatient, cancer are explained to him and he verbalized understanding and acceptance. Objective - Vital Signs Vital signs: Vital Signs Temp 98.1 F 08/07/21 03:49 Pulse 60 08/07/21 08:00 Resp 16 08/07/21 08:00 BP 158/72 08/07/21 08:00 Pulse Ox 93 L 08/07/21 08:00 Intake & Output 08/06/21 08/07/21 08/07/21 18:59 06:59 18:59 Intake Total 997 Output Total 1825 1000 450 Balance -828 -1000 -450 Weight 98.5 kg Intake: Oral 997 Output: Urine 1825 1000 450 Other: Voiding Method Ileal Conduit (Right) Ileal Conduit (Right) Ileal Conduit (Right) - Exam -GENERAL: The patient is alert and oriented x3, not in any acute distress. Obesity HEENT: Pupils are round and equally reacting to light. EOMI. No scleral icterus. No conjunctival pallor. Normocephalic, atraumatic. No pharyngeal erythema. No thyromegaly. CARDIOVASCULAR: S1 and S2 present. No murmurs, rubs, or gallops. -PULMONARY: Chest is clear to auscultation, no wheezing or crackles. Bilateral basal crepitation ABDOMEN: Soft, nontender, nondistended, normoactive bowel sounds. No palpable organomegaly. MUSCULOSKELETAL: No joint swelling or deformity. -EXTREMITIES: No cyanosis, clubbing, . Bilateral pitting leg edema NEUROLOGICAL: Gross neurological examination did not reveal any focal deficits. SKIN: No rashes. no petechiae. - Labs CBC & Chem 7: 08/07/21 07:59 08/07/21 07:59 Labs: Abnormal Lab Results - Last 24 Hours (Table) 08/06/21 08/06/21 08/07/21 Range/Units 16:39 20:19 06:10 RBC (4.30-5.90) m/uL Hgb (13.0-17.5) gm/dL Hct (39.0-53.0) % Lymphocytes # (1.0-4.8) k/uL Sodium (137-145) mmol/L Carbon Dioxide (22-30) mmol/L BUN (9-20) mg/dL Creatinine (0.66-1.25) mg/dL Glucose (74-99) mg/dL POC Glucose (mg/dL) 218 H 180 H 113 H (75-99) mg/dL Calcium (8.4-10.2) mg/dL 08/07/21 08/07/21 08/07/21 Range/Units 07:59 07:59 11:19 RBC 3.22 L (4.30-5.90) m/uL Hgb 9.0 L (13.0-17.5) gm/dL Hct 27.6 L (39.0-53.0) % Lymphocytes # 0.5 L (1.0-4.8) k/uL Sodium 135 L (137-145) mmol/L Carbon Dioxide 18 L (22-30) mmol/L BUN 81 H (9-20) mg/dL Creatinine 4.24 H (0.66-1.25) mg/dL Glucose 122 H (74-99) mg/dL POC Glucose (mg/dL) 138 H (75-99) mg/dL Calcium 8.1 L (8.4-10.2) mg/dL Assessment and Plan Assessment: Assessment: 1. Acute pulmonary edema; patienton Lasix 40 mg IV every 12 hours; we will monitor strict RHODA's, daily weights; low-salt and fluid restricted diet; cardiology consulted for further recommendations. Ejection fraction of 20-25% 2. Acute renal failure; concerns about worsening renal failure given acute pulmonary edema and need for diuresis; we will monitor strict RHODA's, daily weights, renal function and electrolytes; avoid nephrotoxins and hypotension; nephrology is on the case and patient may need hemodialysis, he is aware 3. Elevated d-dimer; rule out PE; VQ scan is completed: Low probability for PE. We will check ultrasound of the leg 4. Acute hypoxic respiratory failure; multifactorial, acute pulmonary edema versus possible PE; VQ scan is ordered and pending; we will place patient on IV heparin per protocol if VQ scan is high probability 5. Hypertension; blood pressures currently stable; we will monitor closely with further recommendations 6. Diabetes mellitus; monitor Accu-Cheks before meals and at bedtime with insul in sliding scale 7. CAD; patient is status post heart catheterization, CABG and pacemaker placement DVT prophylaxis; SCDs/subcu heparin CODE STATUS; full code
--- NOTE | 2021-08-07 14:15 | PN ---
PROGRESS NOTE Patient is seen for followup for acute kidney injury, mostly cardiorenal. He has had good urine output. He had about 2.8 L of urine output over the last 24 hours. Serum creatinine remains stable at about 4.2 mg/dL. Overall, patient states that he is feeling better. PHYSICAL EXAMINATION: On examination today, blood pressure 158/72, heart rate 60 per minute. He is afebrile. Examination of the heart S1, S2. Examination of the lungs: Decreased breath sounds at bases. Abdomen is soft, nontender. Examination of lower extremities shows edema 1+ bilaterally. RADIO STATION OPERATOR exam grossly intact. LAB: Show sodium 135, potassium 4.8, chloride 106, CO2 is 18, BUN 81, creatinine 4.24, hemoglobin 9.0 g/dL. ASSESSMENT: 1. Acute kidney injury, cardiorenal, currently being diuresed. Continue with current dose of Lasix. 2. Chronic kidney disease secondary to diabetic nephropathy, nephrosclerosis, NKF stage 3B to 4 with recent worsening of renal function. Baseline creatinine previously was 2.7. 3. Coronary artery disease status post coronary artery bypass surgery. 4. Status post cystectomy with urostomy for cancer of the bladder in 2018. 5. History of left below the knee amputation. 6. Metabolic acidosis, non gap secondary to renal failure maintained on oral sodium bicarb and slowly improving. 7. Chronic kidney disease mineral bone disorder, maintained on calcitriol. PLAN: Continue with current dose of Lasix. Continue sodium bicarb. Repeat labs in a.m. MMODL / IJN: [id number] /
--- NOTE | 2021-08-07 14:19 | PN ---
PROGRESS NOTE Mr. Mcneal is a 66-year-old male who presented with symptoms of progressive dyspnea, has a known history of coronary artery disease, status post coronary artery bypass grafting, history of left BKA, peripheral vascular disease, chronic kidney disease, permanent pacemaker implantation, hypertension and hyperlipidemia. He presented with symptoms of progressive dyspnea and evidence of congestive heart failure. He underwent myocardial perfusion imaging in [facility] on June 11 that showed lateral wall ischemia with an ejection fraction of 45%. His echocardiogram at the same time showed an ejection fraction 40% to 45% with no significant valvular disease. He had an echocardiogram performed here that showed a significantly impaired left ventricular systolic function with ejection fraction reported to be 20% to 25% with moderate tricuspid regurgitation and moderate to severe pulmonary hypertension. He is feeling better this morning. His breathing is better. He is denying any chest pain. He denies any dizziness or palpitations. He was noted to have renal insufficiency on presentation. He continues to be on amlodipine 5 mg daily, aspirin once a day, Lipitor 40 mg daily, Lasix 40 mg IV q.12 hours, subcutaneous heparin, hydralazine 100 in the middle of the day and 50 in the morning and the evening, and metoprolol tartrate 100 mg twice a day. PHYSICAL EXAMINATION: Blood pressure running in the 120s to 150s with a heart rate in the 60s. LUNGS: No wheezes. HEART: Regular rate and rhythm. No S3. No rub appreciated, with a systolic murmur. ABDOMEN: Soft, nontender. EXTREMITIES: Status post left BKA with 1+ edema on the right side. LAB DATA: BUN and creatinine 58 and 3.53. Hemoglobin of 8.9. Those were his lab work on admission. Today his creatinine is 4.24 with a BUN of 81. His hemoglobin is 9. IMPRESSION: 1. Symptoms of congestive heart failure with severe cardiomyopathy. There is a drop in the EF compared to May. The patient did not have an acute ischemic event during this admission. 2. History of coronary artery disease, status post coronary artery bypass grafting, with lateral wall ischemia according to the stress test performed in May. The patient was scheduled to undergo cardiac catheterization in [place] with his barrer and tacker, but that procedure was canceled because of the renal failure. 3. Chronic kidney disease with acute exacerbation of his renal function. 4. Severe peripheral vascular disease, status post left BKA. 5. Hypertension. 6. Hyperlipidemia. RECOMMENDATIONS: From the cardiac standpoint, I will add isosorbide mononitrate to his regimen. I will adjust the dose of his hydralazine. Will follow his renal function closely. At this time I will hold on the cardiac catheterization because of the renal failure in the absence of acute ischemic event. The patient will need to be evaluated down the road once he is stabilized. I have discussed those findings with the patient. HALLE / NIKIA: [id number] /
[2021-08-07 16:34] LABS: Glucose,Whole Blood 197 mg/dL (75-99)
[2021-08-07] MEDS: hydrALAZINE HCL 25 MG TAB PO SCH ×2 (17:07→21:05)
[2021-08-07] MEDS: ALPRAZolam 0.5 MG TAB PO PRN (17:10)
[2021-08-07 20:15] LABS: Glucose,Whole Blood 174 mg/dL (75-99)
[2021-08-07] MEDS: ASPIRIN 81 MG PO SCH (21:05)
[2021-08-08 06:17] LABS: Glucose,Whole Blood 125 mg/dL (75-99)
[2021-08-08] MEDS: INSULIN ASPART (NovoLOG) 100 UNIT/ML VIAL SQ SCH ×4 (06:30→21:17)
[2021-08-08] MEDS: FUROSEMIDE 10 MG/ML 4 ML VIAL IV SCH ×2 (06:30→17:14)
[2021-08-08] MEDS: hydrALAZINE HCL 25 MG TAB PO SCH ×3 (08:59→21:17)
[2021-08-08] MEDS: FAMOTIDINE 20 MG TAB PO SCH (08:59)
[2021-08-08] MEDS: amLODIPine 5 MG TAB PO SCH (08:59)
[2021-08-08] MEDS: METOPROLOL TARTRATE 50 MG TAB PO SCH ×2 (08:59→21:17)
[2021-08-08] MEDS: ISOSORBIDE MONONITRATE ER 30 MG TAB.ER.24H PO SCH (09:00)
[2021-08-08] MEDS: HEPARIN SODIUM,PORCINE/PF 5,000 UNIT/0.5 ML SYRINGE SQ SCH ×2 (09:00→21:17)
[2021-08-08] MEDS: SODIUM BICARBONATE TAB 650 MG TAB PO SCH ×4 (09:00→21:17)
[2021-08-08] MEDS: ATORVASTATIN 40 MG TAB PO SCH (09:00)
[2021-08-08 09:05] LABS: Calcium 8.4 mg/dL (8.4-10.2); Potassium 4.1 mmol/L (3.5-5.1)
--- NOTE | 2021-08-08 11:29 | P.PN ---
Subjective This is a pleasant 66-year-old male past medical history significant for coronary artery disease status post bypass grafting, left BKA, peripheral vascular disease, chronic kidney disease, permanent pacemaker implantation, hypertension and dyslipidemia. He is seen and examined sitting up in his room in no acute distress. He states overnight he had no symptoms of chest discomfort. He denies worsening shortness of breath. He states since admission he is feeling significantly better. Blood pressure 133/59 heart rate 68 afebrile maintaining oxygen saturation on nasal cannula. Laboratory data reviewed, sodium 137, potassium 4.1, creatinine 4.22 and proBNP 13,200. 24-hour urine output is 2.6 L, maintaining a negative fluid balance. Currently maintained on amlodipine 5 mg daily, aspirin 81 mg daily, atorvastatin 40 mg daily, Lasix 40 mg IV twice a day, hydralazine 75 mg 3 times a day, Imdur 30 mg daily and metoprolol 100 mg twice a day. Telemetry tracings reveal persistent AV pacing. GENERAL: Well-appearing, well-nourished and in no acute distress. NECK: Supple without JVD or thyromegaly. LUNGS: Breath sounds clear to auscultation bilaterally. Respiration equal and unlabored. No wheezes, rales or rhonchi. HEART: Regular rate and rhythm with systolic ejection murmur at the base, no rubs or gallops. S1 and S2 heard. EXTREMITIES: Normal range of motion, trace edema to the right lower extremity, left BKA. No clubbing or cyanosis. Peripheral pulses intact. ASSESSMENT Acute systolic heart failure, worsening EF since May 2021 Coronary artery disease status post bypass grafting Abnormal stress test May 2021 Acute on chronic kidney disease Severe peripheral vascular disease status post left BKA Hypertension Dyslipidemia PLAN Continue current medical regimen. Follow renal function in the morning. Increase activity as tolerated. No plans for cardiac catheterization at this time. Continue to optimize medical regimen. Nurse Practitioner note has been reviewed, I agree with a documented findings and plan of care. Patient was seen and examined. Objective - Vital Signs Vital signs: Vital Signs Temp 97.9 F 08/08/21 08:56 Pulse 60 08/08/21 08:56 Resp 18 08/08/21 08:56 BP 133/59 08/08/21 08:56 Pulse Ox 96 08/08/21 08:56 Intake & Output 08/07/21 08/08/2121 18:59 06:59 18:59 Intake Total 660 240 Output Total 1100 1500 Balance -440 -1500 240 Weight 98.5 kg Intake: Oral 660 240 Output: Urine 1100 1500 Other: Voiding Method Ileal Conduit (Right) Ileal Conduit (Right) - Labs CBC & Chem 7: 08/07/21 07:59 08/08/21 07:27 Labs: Abnormal Lab Results - Last 24 Hours (Table) 08/07/21 08/07/21 08/07/21 Range/Units 11:19 16:32 20:14 Carbon Dioxide (22-30) mmol/L BUN (9-20) mg/dL Creatinine (0.66-1.25) mg/dL Glucose (74-99) mg/dL POC Glucose (mg/dL) 138 H 197 H 174 H (75-99) mg/dL 08/08/21 08/08/21 Range/Units 06:05 07:27 Carbon Dioxide 19 L (22-30) mmol/L BUN 85 H (9-20) mg/dL Creatinine 4.22 H (0.66-1.25) mg/dL Glucose 120 H (74-99) mg/dL POC Glucose (mg/dL) 125 H (75-99) mg/dL
[2021-08-08 11:52] LABS: Glucose,Whole Blood 154 mg/dL (75-99)
--- NOTE | 2021-08-08 11:52 | P.PN ---
Subjective 66-year-old male who presents to us from [facility] they saw him up there for difficulty breathing today. Patient's past medical history is consistent with diabetes congestive heart failure bypass surgery a BKA on the left. Patient had a recent stress test that was abnormal so they wanted to a cardiac catheterization however when he was in the hospital his kidney function was off so they wanted the patient to stop his Lasix on so they were followed up in the maybe his kidney function would improve and they would feel more comfortable doing the catheterization. Patient states however over the last 2 or 3 days the he has had more difficulty breathing and so they went to the [facility] emergency department. While in the department he was oxygenating about 90% on room air his BNP was over 8000 his d-dimer was elevated at 3.78 and his creatinine was 3.5 patient was unable to get a CAT scan because of the elevated creatinine so I started the patient on heparin and decided to send the patient to us. [facility] but [facility] is full so he came to our facility. Patient denies any current chest pain but does complain of difficulty breathing 08/05/2021 The patient is admitted with fluid overload/CHF, worsening renal failure and unstable angina. Patient's renal function continues to worsen and creatinine is up to 4.1 this morning. The radio communications superintendent did mention the possibility of hemodialysis down the road. Patient continues to complain of shortness of breath and hypoxic on 2 L O2 per nasal cannula which has been increased to increased to 3 L. The patient is still making urine. White count 7.6, hemoglobin 9.4, hematocrit 28, platelet count 202,000. Sodium 134, potassium 4.8, chlorides 107, CO2 15, anion gap 12, BUN 71, and creatinine 4.10. No chest x-ray to report on. Nephrology recommending to continue with Lasix 40 mg every 12 hours; monitor strict RHODA's and daily weights; iron studies at ordered and pending; bicarbonate is increased from twice a day up to 4 times a day dosing; nephrology recommending to hold cardiac catheterization till creatinine stabilizes. 08/06/21 Patient is a pleasant 66 years old male who presents with respiratory distress secondary to acute systolic CHF with ejection fraction 20-25% been evaluated by round kiln drawer who recommended cardiac cath however that is on hold because of his worsening acute kidney injury on the top of his chronic kidney disease stage III. Worse at 4.2 with baseline around 2.5. Patient was 3.0. Mold Cleaner added IV iron for him for his anemia however his hemoglobin has been a stable 8.9-9.4. Echocardiogram showed ejection fraction of 20-25% and his proBNP is elevated troponin thousand 900. He is saturating 92% on 2 L oxygen via nasal cannula. His maintained on IV Lasix 40 mg twice daily, also he is currently on metoprolol 100 mg, twice daily. Hydralazine 50 mg twice daily and Norvasc 10 mg daily. Aspirin 81 mg. Lisinopril/GENEVA inhibitor because of his worsening kidney function. Patient is Monitored closely by cardiology and nephrology team. Pulmonary team are signed and off check ultrasound of the legs 08/07/2021 Patient with minimal dyspnea, no chest pain. Patient improving and it looks more stable. Complaints or new complaint. On 2 L oxygen via nasal cannula oxygen saturation and 90s. His blood pressure was mildly elevated. Uptwister Tender increase his hydralazine 50 mg to 75 mg 3 times a day. His creatinine remains at 4.2 with radio communications superintendent on the case considering hemodialysis Cardiac cath is considered by round kiln drawer however it is on hold because of his kidney disease. And leg ultrasound is negative for DVT. Also patient with anemia and receiving IV iron. That he never had colonoscopy before, I advised patient to follow-up with his PCP for screening colonoscopy as an outpatient, cancer are explained to him and he verbalized understanding and acceptance. Patient is now much change from yesterday, he is not with chest pain. His breathing is better today even with exertion. Vitals are stable. Attending has been stable over the last 3 days at 4.2. Baseline is 2.5. His proBNP is slightly elevated from 10,100 up to 13,002 100 however clinically he is not on James heart failure. He remains on IV Lasix 40 mg twice a day and IV iron. Also he is on baby aspirin. GENEVA inhibitor is on hold. Uptwister Tender recommended no cardiac cath currently Nephrology R following the patient closely for his renal disease. Patient has a right urostomy since 2018 and he follows up with his urologist Dr. Lyle in [place] Objective - Vital Signs Vital signs: Vital Signs Temp 97.9 F 09/08/21 08:56 Pulse 59 L 08/08/21 11:03 Resp 16 08/08/21 11:03 BP 127/56 08/08/21 11:03 Pulse Ox 94 L 08/08/21 11:03 Intake & Output 08/07/21 08/08/21 08/08/21 18:59 06:59 18:59 Intake Total 660 240 Output Total 1100 1500 Balance -440 -1500 240 Weight 98.5 kg Intake: Oral 660 240 Output: Urine 1100 1500 Other: Voiding Method Ileal Conduit (Right) Ileal Conduit (Right) Ileal Conduit (Right) - Exam -GENERAL: The patient is alert and oriented x3, not in any acute distress. Obesity HEENT: Pupils are round and equally reacting to light. EOMI. No scleral icterus. No conjunctival pallor. Normocephalic, atraumatic. No pharyngeal erythema. No thyromegaly. CARDIOVASCULAR: S1 and S2 present. No murmurs, rubs, or gallops. -PULMONARY: Chest is clear to auscultation, no wheezing or crackles. Bilateral basal crepitation ABDOMEN: Soft, nontender, nondistended, normoactive bowel sounds. No palpable organomegaly. MUSCULOSKELETAL: No joint swelling or deformity. -EXTREMITIES: No cyanosis, clubbing, . Bilateral pitting leg edema NEUROLOGICAL: Gross neurological examination did not reveal any focal deficits. SKIN: No rashes. no petechiae. - Labs CBC & Chem 7: 08/07/21 07:59 08/08/21 07:27 Labs: Abnormal Lab Results - Last 24 Hours (Table) 08/07/21 08/07/21 08/08/21 Range/Units 16:32 20:14 06:05 Carbon Dioxide (22-30) mmol/L BUN (9-20) mg/dL Creatinine (0.66-1.25) mg/dL Glucose (74-99) mg/dL POC Glucose (mg/dL) 197 H 174 H 125 H (75-99) mg/dL 08/08/21 Range/Units 07:27 Carbon Dioxide 19 L (22-30) mmol/L BUN 85 H (9-20) mg/dL Creatinine 4.22 H (0.66-1.25) mg/dL Glucose 120 H (74-99) mg/dL POC Glucose (mg/dL) (75-99) mg/dL Assessment and Plan Assessment: Assessment: 1. Acute pulmonary edema; patienton Lasix 40 mg IV every 12 hours; we will monitor strict RHODA's, daily weights; low-salt and fluid restricted diet; cardiology consulted for further recommendations. Ejection fraction of 20-25% 2. Acute renal failure; concerns about worsening renal failure given acute pulmonary edema and need for diuresis; we will monitor strict RHODA's, daily weights, renal function and electrolytes; avoid nephrotoxins and hypotension; nephrology is on the case and patient may need hemodialysis, he is aware 3. Elevated d-dimer; rule out PE; VQ scan is completed: Low probability for PE. We will check ultrasound of the leg 4. Acute hypoxic respiratory failure; multifactorial, acute pulmonary edema [place] possible PE; VQ scan is ordered and pending; we will place patient on IV heparin per protocol if VQ scan is high probability 5. Hypertension; blood pressures currently stable; we will monitor closely with further recommendations 6. Diabetes mellitus; monitor Accu-Cheks before meals and at bedtime with insulin sliding scale 7. CAD; patient is status post heart catheterization, CABG and pacemaker placement DVT prophylaxis; SCDs/subcu heparin CODE STATUS; full code
--- NOTE | 2021-08-08 13:33 | PN ---
PROGRESS NOTE Patient is seen for followup for acute kidney injury on top of chronic kidney disease. The patient is currently being diuresed for volume overload. His renal function is fairly stable with serum creatinine staying at about 4.2 mg/dL. Patient is maintained on Lasix 40 mg IV q.12 hours. 24 hour urine output at about 2.6 L. PHYSICAL EXAMINATION: On examination today, blood pressure 127/56, heart rate 59 per minute. He is afebrile. Examination of the heart S1, S2. Examination of the lungs, decreased breath sounds at the bases. Abdomen is soft, nontender. Examination lower extremities shows edema 1+. The patient has left BKA. OXYGEN THERAPIST exam grossly intact. LAB: Show sodium 137, potassium 4.1, chloride 105, CO2 is 19, BUN 85, creatinine 4.2. ASSESSMENT: 1. Acute kidney injury, cardiorenal, currently stable maintained on IV Lasix. 2. Chronic kidney disease stage 3B to 4 secondary to diabetic nephropathy nephrosclerosis with recent worsening of renal function. Baseline creatinine around 2.7, being followed by Dr. Lyle. 3. Coronary artery disease status post coronary artery bypass surgery. 4. Bladder cancer status post cystectomy and urostomy in 2018. 5. History of left below knee amputation. 6. Metabolic acidosis maintained on sodium bicarb. 7. Chronic kidney disease, mineral bone disorder, currently maintained on calcitriol. PLAN: Continue with the IV Lasix for now. MMODL / IJN: [id number] /
[2021-08-08 16:36] LABS: Glucose,Whole Blood 174 mg/dL (75-99)
[2021-08-08] MEDS: ALPRAZolam 0.5 MG TAB PO PRN (17:14)
[2021-08-08 19:49] LABS: Glucose,Whole Blood 196 mg/dL (75-99)
[2021-08-08] MEDS: ASPIRIN 81 MG PO SCH (21:17)
[2021-08-09 06:37] LABS: Glucose,Whole Blood 129 mg/dL (75-99)
[2021-08-09] MEDS: INSULIN ASPART (NovoLOG) 100 UNIT/ML VIAL SQ SCH ×4 (06:55→20:19)
[2021-08-09] MEDS: FUROSEMIDE 10 MG/ML 4 ML VIAL IV SCH (07:02)
[2021-08-09] MEDS: FAMOTIDINE 20 MG TAB PO SCH (08:42)
[2021-08-09] MEDS: hydrALAZINE HCL 25 MG TAB PO SCH ×3 (08:42→20:18)
[2021-08-09] MEDS: HEPARIN SODIUM,PORCINE/PF 5,000 UNIT/0.5 ML SYRINGE SQ SCH ×2 (08:42→20:19)
[2021-08-09] MEDS: METOPROLOL TARTRATE 50 MG TAB PO SCH ×2 (08:42→20:18)
[2021-08-09] MEDS: ATORVASTATIN 40 MG TAB PO SCH (08:43)
[2021-08-09] MEDS: amLODIPine 5 MG TAB PO SCH (08:43)
[2021-08-09] MEDS: ISOSORBIDE MONONITRATE ER 30 MG TAB.ER.24H PO SCH (08:43)
[2021-08-09] MEDS: SODIUM BICARBONATE TAB 650 MG TAB PO SCH ×4 (08:43→20:18)
[2021-08-09 08:50] LABS: Calcium 8.4 mg/dL (8.4-10.2); Potassium 4.2 mmol/L (3.5-5.1)
[2021-08-09] MEDS ORDERED: ISOSORBIDE MONONITRATE ER 30 MG TAB.ER.24H PO ONE (09:00)
[2021-08-09] MEDS ORDERED: ISOSORBIDE MONONITRATE ER 60 MG TAB.ER.24H PO SCH (09:00)
--- NOTE | 2021-08-09 09:02 | P.PN ---
Subjective This is a pleasant 66-year-old male past medical history significant for coronary artery disease status post bypass grafting, left BKA, peripheral vascular disease, chronic kidney disease, permanent pacemaker implantation, hypertension and dyslipidemia. He is seen and examined sitting up in his room in no acute distress. He states overnight he had no symptoms of chest discomfort. He denies worsening shortness of breath. He states since admission he is feeling significantly better. Blood pressure 133/59 heart rate 68 afebrile maintaining oxygen saturation on nasal cannula. Laboratory data reviewed, sodium 137, potassium 4.1, creatinine 4.22 and proBNP 13,200. 24-hour urine output is 2.6 L, maintaining a negative fluid balance. Currently maintained on amlodipine 5 mg daily, aspirin 81 mg daily, atorvastatin 40 mg daily, Lasix 40 mg IV twice a day, hydralazine 75 mg 3 times a day, Imdur 30 mg daily and metoprolol 100 mg twice a day. Telemetry tracings reveal persistent AV pacing. 08/09/2021 Pt is seen and examined laying flat resting comfortably in bed in no acute distress. He denies symptoms of chest pain or shortness of breath. Blood pressure 140/60 heart rate 60 afebrile and maintaining oxygen saturation on room air. currently maintained on amlodipine 5 mg daily, aspirin 81 mg daily, atorvastatin 40 mg daily, hydralazine 75 mg 3 times a day, Imdur 30 mg daily, Lopressor 100 mg twice a day and Lasix 40 mg IV twice a day per nephrology.24 hour urine output 1450 mL is maintaining a negative fluid balance. GENERAL: Well-appearing, well-nourished and in no acute distress. NECK: Supple without JVD or thyromegaly. LUNGS: Breath sounds clear to auscultation bilaterally. Respiration equal and unlabored. No wheezes, rales or rhonchi. HEART: Regular rate and rhythm with systolic ejection murmur at the base, no rubs or gallops. S1 and S2 heard. EXTREMITIES: Normal range of motion, trace edema to the right lower extremity, left BKA. No clubbing or cyanosis. Peripheral pulses intact. ASSESSMENT Acute systolic heart failure, worsening EF since May 2021 Coronary artery disease status post bypass grafting Abnormal stress test May 2021 Acute on chronic kidney disease Severe peripheral vascular disease status post left BKA Hypertension Dyslipidemia PLAN Increase imdur to 60 mg daily. Discontinue amlodipine due to cardiomyopathy. Transition to oral diuretics. Follow renal function in the morning. Increase activity as tolerated. No plans for cardiac catheterization at this time. Continue to optimize medical regimen. Nurse Practitioner note has been reviewed, I agree with a documented findings and plan of care. Patient was seen and examined. Objective - Vital Signs Vital signs: Vital Signs Temp 98 F 08/09/21 07:43 Pulse 60 08/09/21 07:45 Resp 16 08/09/21 07:45 BP 140/60 08/09/21 07:43 Pulse Ox 98 08/09/21 07:43 Intake & Output 08/08/21 08/09/21 08/09/21 18:59 06:59 18:59 Intake Total 1090 540 Output Total 396 765 0116 Balance 140 -500 -1260 Weight 95.6 kg Intake: Oral 1090 540 Output: Urine 023 150 9849 Other: Voiding Method Ileal Conduit (Right) Ileal Conduit (Right) Ileal Conduit (Right) - Labs CBC & Chem 7: 08/07/21 07:59 08/09/21 08:09 Labs: Abnormal Lab Results - Last 24 Hours (Table) 08/08/21 08/08/21 08/08/21 Range/Units 07:27 11:51 16:34 Carbon Dioxide 19 L (22-30) mmol/L BUN 85 H (9-20) mg/dL Creatinine 4.22 H (0.66-1.25) mg/dL Glucose 120 H (74-99) mg/dL POC Glucose (mg/dL) 154 H 174 H (75-99) mg/dL 08/08/21 08/09/21 Range/Units 19:46 06:35 Carbon Dioxide (22-30) mmol/L BUN (9-20) mg/dL Creatinine (0.66-1.25) mg/dL Glucose (74-99) mg/dL POC Glucose (mg/dL) 196 H 129 H (75-99) mg/dL
[2021-08-09] MEDS: FUROSEMIDE 40 MG TAB PO SCH ×2 (09:24→15:44)
[2021-08-09 11:32] LABS: Glucose,Whole Blood 173 mg/dL (75-99)
--- NOTE | 2021-08-09 12:03 | P.PN ---
Subjective 66-year-old male who presents to us from [facility] they saw him up there for difficulty breathing today. Patient's past medical history is consistent with diabetes congestive heart failure bypass surgery a BKA on the left. Patient had a recent stress test that was abnormal so they wanted to a cardiac catheterization however when he was in the hospital his kidney function was off so they wanted the patient to stop his Lasix on so they were followed up in the maybe his kidney function would improve and they would feel more comfortable doing the catheterization. Patient states however over the last 2 or 3 days the he has had more difficulty breathing and so they went to the [place] emergency department. While in the department he was oxygenating about 90% on room air his BNP was over 8000 his d-dimer was elevated at 3.78 and his creatinine was 3.5 patient was unable to get a CAT scan because of the elevated creatinine so I started the patient on heparin and decided to send the patient to us. [facility] so he came to our facility. Patient denies any current chest pain but does complain of difficulty breathing 08/05/2021 The patient is admitted with fluid overload/CHF, worsening renal failure and unstable angina. Patient's renal function continues to worsen and creatinine is up to 4.1 this morning. The jewelry estimator did mention the possibility of hemodialysis down the road. Patient continues to complain of shortness of breath and hypoxic on 2 L O2 per nasal cannula which has been increased to increased to 3 L. The patient is still making urine. White count 7.6, hemoglobin 9.4, hematocrit 28, platelet count 202,000. Sodium 134, potassium 4.8, chlorides 107, CO2 15, anion gap 12, BUN 71, and creatinine 4.10. No chest x-ray to report on. Nephrology recommending to continue with Lasix 40 mg every 12 hours; monitor strict RHODA's and daily weights; iron studies at ordered and pending; bicarbonate is increased from twice a day up to 4 times a day dosing; nephrology recommending to hold cardiac catheterization till creatinine stabilizes. 08/06/21 Patient is a pleasant 66 years old male who presents with respiratory distress secondary to acute systolic CHF with ejection fraction 20-25% been evaluated by electric serviceman who recommended cardiac cath however that is on hold because of his worsening acute kidney injury on the top of his chronic kidney disease stage III. Worse at 4.2 with baseline around 2.5. Patient was 3.0. Online Merchant added IV iron for him for his anemia however his hemoglobin has been a stable 8.9-9.4. Echocardiogram showed ejection fraction of 20-25% and his proBNP is elevated troponin thousand 900. He is saturating 92% on 2 L oxygen via nasal cannula. His maintained on IV Lasix 40 mg twice daily, also he is currently on metoprolol 100 mg, twice daily. Hydralazine 50 mg twice daily and Norvasc 10 mg daily. Aspirin 81 mg. Lisinopril/GENEVA inhibitor because of his worsening kidney function. Patient is Monitored closely by cardiology and nephrology team. Pulmonary team are signed and off check ultrasound of the legs 08/07/2021 Patient with minimal dyspnea, no chest pain. Patient improving and it looks more stable. Complaints or new complaint. On 2 L oxygen via nasal cannula oxygen saturation and 90s. His blood pressure was mildly elevated. Health Information Clerk increase his hydralazine 50 mg to 75 mg 3 times a day. His creatinine remains at 4.2 with jewelry estimator on the case considering hemodialysis Cardiac cath is considered by electric serviceman however it is on hold because of his kidney disease. And leg ultrasound is negative for DVT. Also patient with anemia and receiving IV iron. That he never had colonoscopy before, I advised patient to follow-up with his PCP for screening colonoscopy as an outpatient, cancer are explained to him and he verbalized understanding and acceptance. Patient is now much change from yesterday, he is not with chest pain. His breathing is better today even with exertion. Vitals are stable. Attending has been stable over the last 3 days at 4.2. Baseline is 2.5. His proBNP is slightly elevated from 10,100 up to 13,002 100 however clinically he is not on James heart failure. He remains on IV Lasix 40 mg twice a day and IV iron. Also he is on baby aspirin. GENEVA inhibitor is on hold. Health Information Clerk recommended no cardiac cath currently Nephrology R following the patient closely for his renal disease. Patient has a right urostomy since 2018 and he follows up with his urologist Dr. Lyle in [place] 08/09/2021 Patient is a breathing is better today and he is saturating 98% on room air. His Lasix was is wished to 40 mg orally twice daily today. His vitals are stable, Norvasc was used stopped and Imdur increased 30 up to 60 mg daily. Current blood pressure is 125/60. Creatinine is stable at 4.0. He remains on metoprolol, hydralazine Objective - Vital Signs Vital signs: Vital Signs Temp 98 F 08/09/21 11:22 Pulse 65 08/09/21 11:24 Resp 16 08/09/21 11:24 BP 125/60 08/09/21 11:22 Pulse Ox 98 08/09/21 11:22 Intake & Output 08/08/21 08/09/21 08/09/21 18:59 06:59 18:59 Intake Total 1090 540 Output Total 497 643 1003 Balance 140 -500 -1610 Weight 95.6 kg Intake: Oral 1090 540 Output: Urine 816 911 2864 Other: Voiding Method Ileal Conduit (Right) Ileal Conduit (Right) Ileal Conduit (Right) - Exam -GENERAL: The patient is alert and oriented x3, not in any acute distress. Obesity HEENT: Pupils are round and equally reacting to light. EOMI. No scleral icterus. No conjunctival pallor. Normocephalic, atraumatic. No pharyngeal erythema. No thyromegaly. CARDIOVASCULAR: S1 and S2 present. No murmurs, rubs, or gallops. -PULMONARY: Chest is clear to auscultation, no wheezing or crackles. Bilateral basal crepitation ABDOMEN: Soft, nontender, nondistended, normoactive bowel sounds. No palpable organomegaly. MUSCULOSKELETAL: No joint swelling or deformity. -EXTREMITIES: No cyanosis, clubbing, . Bilateral pitting leg edema NEUROLOGICAL: Gross neurological examination did not reveal any focal deficits. SKIN: No rashes. no petechiae. - Labs CBC & Chem 7: 08/07/21 07:59 08/09/21 08:09 Labs: Abnormal Lab Results - Last 24 Hours (Table) 08/08/21 08/08/21 08/09/21 Range/Units 16:34 19:46 06:35 BUN (9-20) mg/dL Creatinine (0.66-1.25) mg/dL Glucose (74-99) mg/dL POC Glucose (mg/dL) 174 H 196 H 129 H (75-99) mg/dL 08/09/21 08/09/21 Range/Units 08:09 11:30 BUN 82 H (9-20) mg/dL Creatinine 4.01 H (0.66-1.25) mg/dL Glucose 170 H (74-99) mg/dL POC Glucose (mg/dL) 173 H (75-99) mg/dL Assessment and Plan Assessment: Assessment: 1. Acute pulmonary edema; patienton Lasix 40 mg IV every 12 hours; we will monitor strict RHODA's, daily weights; low-salt and fluid restricted diet; cardiology consulted for further recommendations. Ejection fraction of 20-25% 2. Acute renal failure; concerns about worsening renal failure given acute pulmonary edema and need for diuresis; we will monitor strict RHODA's, daily weights, renal function and electrolytes; avoid nephrotoxins and hypotension; nephrology is on the case and patient may need hemodialysis, he is aware 3. Elevated d-dimer; rule out PE; VQ scan is completed: Low probability for PE. We will check ultrasound of the leg 4. Acute hypoxic respiratory failure; multifactorial, acute pulmonary edema versus possible PE; VQ scan is ordered and pending; we will place patient on IV heparin per protocol if VQ scan is high probability 5. Hypertension; blood pressures currently stable; we will monitor closely with further recommendations 6. Diabetes mellitus; monitor Accu-Cheks before meals and at bedtime with insulin sliding scale 7. CAD; patient is status post heart catheterization, CABG and pacemaker placement DVT prophylaxis; SCDs/subcu heparin CODE STATUS; full code
--- NOTE | 2021-08-09 12:32 | PN ---
PROGRESS NOTE Patient is seen for followup for CKD and acute kidney injury. He is currently being treated for volume overload. Volume status has improved, serum creatinine staying at about 4.0 mg/dL. His Lasix has been switched to p.o. PHYSICAL EXAMINATION: On examination today, blood pressure is 125/60, heart rate 65 per minute. Patient is afebrile. EXAMINATION OF THE HEART: S1 and S2. EXAMINATION OF LUNGS: Bilateral breath sounds are heard. ABDOMEN: Soft, nontender. LOWER EXTREMITIES: Examination of lower extremities shows no significant edema. Patient has left BKA. BOAT MOTOR MECHANIC EXAM: Grossly intact. LABS: Labs show sodium 137, potassium 4.2, chloride 104. CO2 is 23, BUN 82, creatinine 4.01. ASSESSMENT: 1. Acute kidney injury, cardiorenal, currently stable. Lasix switched to p.o. 2. Volume overload, now improved. 3. Congestive heart failure, acute on top of chronic, systolic, with ejection fraction 20% to 25%. 4. Cardiomyopathy, ejection fraction 20% to 25%, with severely dilated right ventricle and left atrium is moderately enlarged. 5. Chronic kidney disease, NKF stage IV, being followed by Dr. Lyle in [place]. 6. History of bladder cancer, status post cystectomy and urostomy in 2018. 7. History of left BKA. 8. Chronic kidney disease mineral bone disorder, maintained on calcitriol. PLAN: Patient is stable for discharge from nephrology standpoint. Continue with oral Lasix 40 mg b.i.d. and close monitoring as outpatient for need for renal replacement therapy down the road. The patient does not need dialysis at this point. MMODL / IJN: [id number] /
[2021-08-09 16:36] LABS: Glucose,Whole Blood 189 mg/dL (75-99)
[2021-08-09 19:56] LABS: Glucose,Whole Blood 190 mg/dL (75-99)
[2021-08-09] MEDS: ASPIRIN 81 MG PO SCH (20:18)
[2021-08-09] MEDS: ALPRAZolam 0.5 MG TAB PO PRN (20:19)
[2021-08-10 05:42] LABS: Glucose,Whole Blood 116 mg/dL (75-99)
[2021-08-10] MEDS: INSULIN ASPART (NovoLOG) 100 UNIT/ML VIAL SQ SCH (06:15)
[2021-08-10 07:22] VITALS: BP 151/72; PULSE 73; RESP 17; TEMP 98
--- NOTE | 2021-08-10 07:43 | P.PN ---
Subjective Progress Note Date: 08/10/21 Principal diagnosis: This is a 66-year-old male seen in consultation because of acute kidney injury and chronic kidney disease. He is known with diabetes for 15 years, has had very artery bypass graft and pacer in the past he left BKA in 2014 EC of the bladder with urostomy in 2018. Supposedly and recent ultrasound a few weeks ago was unremarkable for any hydronephrosis. He was admitted with shortness of breath. He is known with chronic kidney disease, he is under the care of Dr. Lyle at [place], his baseline creatinine supposedly 2.7 but the last few weeks it has been going up. As an outpatient, His Lasix was therefore discontinued to see if his creatinine would improve. Consequently he had shortness of breath and edema and was admitted His creatinine here on admission was 3.53. His x-ray on admission showed congestive heart failure. He was started on Lasix. He responded with improved urine output, He continues to improve and is on room air and comfortable. Edema is almost resolved. Creatinine still remains high but stable. Vital signs are stable u rine output is 4700 mL on Lasix 40 twice a day Objective - Vital Signs Vital signs: Vital Signs Temp 98 F 08/10/21 07:21 Pulse 73 08/10/21 07:22 Resp 17 08/10/21 07:22 BP 151/72 08/10/21 07:21 Pulse Ox 95 08/10/21 07:21 Intake & Output 08/09/21 08/10/21 08/10/21 18:59 06:59 18:59 Intake Total 777 240 Output Total 2600 2100 Balance -1823 -1860 Intake: Oral 777 240 Output: Urine 2600 2100 Other: Voiding Method Ileal Conduit (Right) Ileal Conduit (Right) Ileal Conduit (Right) The grandson awake alert oriented comfortable HEENT exam no JVP neck is supple no facial asymmetry Lungs are clear to auscultation good air entry bilaterally. Heart sounds unremarkable except for atrial fibrillation Abdomen is soft nontender slightly protuberant Extremity exam was left BKA remote and the right leg has minimal to trace edema Neurologically awake alert oriented - Labs CBC & Chem 7: 08/07/21 07:59 08/09/21 08:09 Labs: Abnormal Lab Results - Last 24 Hours (Table) 08/09/21 08/09/21 08/09/21 Range/Units 08:09 11:30 16:35 BUN 82 H (9-20) mg/dL Creatinine 4.01 H (0.66-1.25) mg/dL Glucose 170 H (74-99) mg/dL POC Glucose (mg/dL) 173 H 189 H (75-99) mg/dL 08/09/21 08/10/21 Range/Units 19:55 05:40 BUN (9-20) mg/dL Creatinine (0.66-1.25) mg/dL Glucose (74-99) mg/dL POC Glucose (mg/dL) 190 H 116 H (75-99) mg/dL Assessment and Plan Assessment: Impression 1. Acute kidney injury secondary to cardiorenal syndrome. Currently on Lasix with improvement in shortness of breath but worsening creatinine up to 4. subjectively he has improved with less shortness of breath and almost complete resolution of edema, has no evidence of uremia. 2. 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 Baseline creatinine is 2.7 per patient's history dates not clear but has been worsening recently 2 up to 3. was Off of Lasix because of this by his n ephrologist Dr. Lyle at [place]. Urine protein to creatinine ratio is 1.3 g 3. Coronary artery disease status post bypass in the remote past. 4. History of pacer 5. 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 History of BKA 2013 on the left. 7. Mild degree of non-gap acidosis. Etiology is acute and chronic kidney disease. Bicarb improved to 23 as of yesterday 8. Anemia of chronic illness. Hemoglobin is 9.0 dated 08/07/2021 9. Iron deficiency with iron saturation of 6% on 08/05/2021 , status post 1 dose of Ferrlecit 125 Recommendation 1. Maintain Lasix,-40 every 12 and check strict I's and O's. 2. Continue sodium bicarb 650 4 times a day 3. He will need to be followed up very closely as an outpatient and preparation for dialysis need. Because of the urostomy he cannot be a good candidate for peritoneal dialysis. Patient was educated about this and to follow-up with his director property in [place] as soon as possible
[2021-08-10] MEDS: METOPROLOL TARTRATE 50 MG TAB PO SCH (08:07)
[2021-08-10] MEDS: hydrALAZINE HCL 25 MG TAB PO SCH (08:07)
[2021-08-10] MEDS: HEPARIN SODIUM,PORCINE/PF 5,000 UNIT/0.5 ML SYRINGE SQ SCH (08:07)
[2021-08-10] MEDS: FAMOTIDINE 20 MG TAB PO SCH (08:08)
[2021-08-10] MEDS: SODIUM BICARBONATE TAB 650 MG TAB PO SCH (08:08)
[2021-08-10] MEDS: FUROSEMIDE 40 MG TAB PO SCH (08:08)
[2021-08-10] MEDS: ATORVASTATIN 40 MG TAB PO SCH (08:08)
[2021-08-10 08:42] LABS: Calcium 8.9 mg/dL (8.4-10.2); Potassium 4.4 mmol/L (3.5-5.1)
[2021-08-10] MEDS ORDERED: ISOSORBIDE MONONITRATE ER 60 MG TAB.ER.24H PO SCH (09:00)
--- NOTE | 2021-08-10 11:31 | P.PN ---
Subjective This is a pleasant 66-year-old male past medical history significant for coronary artery disease status post bypass grafting, left BKA, peripheral vascular disease, chronic kidney disease, permanent pacemaker implantation, hypertension and dyslipidemia. He is seen and examined sitting up in his room in no acute distress. He states overnight he had no symptoms of chest discomfort. He denies worsening shortness of breath. He states since admission he is feeling significantly better. Blood pressure 133/59 heart rate 68 afebrile maintaining oxygen saturation on nasal cannula. Laboratory data reviewed, sodium 137, potassium 4.1, creatinine 4.22 and proBNP 13,200. 24-hour urine output is 2.6 L, maintaining a negative fluid balance. Currently maintained on amlodipine 5 mg daily, aspirin 81 mg daily, atorvastatin 40 mg daily, Lasix 40 mg IV twice a day, hydralazine 75 mg 3 times a day, Imdur 30 mg daily and metoprolol 100 mg twice a day. Telemetry tracings reveal persistent AV pacing. 08/10/2021 Patient is seen and examined resting comfortably lying flat in bed in no acute distress. He has no symptoms of chest discomfort or shortness of breath. Blood pressure 151/72 heart rate 73 afebrile maintaining oxygen saturation on room air. Laboratory data reviewed, sodium 138, potassium 4.4, creatinine 3.97. GENERAL: Well-appearing, well-nourished and in no acute distress. NECK: Supple without JVD or thyromegaly. LUNGS: Breath sounds clear to auscultation bilaterally. Respiration equal and unlabored. No wheezes, rales or rhonchi. HEART: Regular rate and rhythm with systolic ejection murmur at the base, no rubs or gallops. S1 and S2 heard. EXTREMITIES: Normal range of motion, trace edema to the right lower extremity, left BKA. No clubbing or cyanosis. Peripheral pulses intact. ASSESSMENT Acute systolic heart failure, worsening EF since May 2021 Coronary artery disease status post bypass grafting Abnormal stress test May 2021 Acute on chronic kidney disease Severe peripheral vascular disease status post left BKA Hypertension Dyslipidemia PLAN Stable for discharge on current medical regimen. Follow up has been arranged with [facility] per Dr. Turk. Further cardiac testing will take place there based on their recommendations. Nurse Practitioner note has been reviewed, I agree with a documented findings and plan of care. Patient was seen and examined. Objective - Vital Signs Vital signs: Vital Signs Temp 98 F 08/10/21 07:21 Pulse 73 08/10/21 07:22 Resp 17 08/10/21 07:22 BP 151/72 08/10/21 07:21 Pulse Ox 95 08/10/21 07:21 Intake & Output 08/09/21 08/10/21 08/10/21 18:59 06:59 18:59 Intake Total 777 240 180 Output Total 2600 2100 Balance -1823 -1860 180 Intake: Oral 777 240 180 Output: Urine 2600 2100 Other: Voiding Method Ileal Conduit (Right) Ileal Conduit (Right) Ileal Conduit (Right) - Labs CBC & Chem 7: 08/07/21 07:59 08/10/21 07:20 Labs: Abnormal Lab Results - Last 24 Hours (Table) 08/09/21 08/09/21 08/09/21 Range/Units 11:30 16:35 19:55 BUN (9-20) mg/dL Creatinine (0.66-1.25) mg/dL Glucose (74-99) mg/dL POC Glucose (mg/dL) 173 H 189 H 190 H (75-99) mg/dL 08/10/21 08/10/21 Range/Units 05:40 07:20 BUN 79 H (9-20) mg/dL Creatinine 3.97 H (0.66-1.25) mg/dL Glucose 128 H (74-99) mg/dL POC Glucose (mg/dL) 116 H (75-99) mg/dL
--- NOTE | 2021-08-10 23:18 | P.DS ---
Providers Date of admission: 08/03/21 13:51 Attending physician: Amee Chavez MD Consults: 08/03/21 13:51 Consult Physician Routine Consulting Provider: [facility] Consult Reason/Comments: Acute pulmonary edema Do you want consulting provider notified?: Yes Consult Physician Routine Consulting Provider: Teo Roque Consult Reason/Comments: Renal failure Do you want consulting provider notified?: Yes 08/03/21 14:19 Consult Physician Routine Consulting Provider: Navarro Smith Consult Reason/Comments: Poss PE Do you want consulting provider notified?: Yes Primary care physician: Stated None Hospital Course: Diagnoses: 1. Acute pulmonary edema; acute on chronic CHF with worsening ejection fraction, Ejection fraction of 20-25% 2. Acute renal failure; chronic kidney disease, creatinine stabilized at 4.1 4.2 over the last 3-4 days 3. Elevated d-dimer;VQ scan is completed: Low probability for PE. Ultrasound of the neck is negative for DVT 4. Acute hypoxic respiratory failure; resolved and patient is on room air upon discharge 5. Hypertension 6. Diabetes mellitus 7. History of coronary artery disease status post CABG and pacemaker 8. Anemia 9. Moderate tricuspid regurgitation 10. history of bladder cancer in 2018 status post right lower abdomen urostomy 11. History of peripheral artery disease status post left BKA and right foot amputation Hospital course: 66-year-old male who presents to us from [facility] they saw him up there for difficulty breathing . Patient was found to have acute on chronic CHF, systolic type. His condition has been evaluated by institutional cook who followed him closely, today I discussed the case with Dr. Davalos who mentioned that his ejection fraction lowered from last time it was checked and currently it is at 20-25% cardiac cath as recommended by institutional cook however it was held because of worsening renal function, if patient to go for cardiac cath most likely she will end up with hemodialysis. And since the patient became asymptomatic and his CHF has been controlled with IV Lasix and clinically stable with no chest pain or discomfort over several days institutional cook cleared him for discharge to follow-up with his on institutional cook at [facility] which is the same wishes of the patient . Patient has the contact information for his institutional cook at home and states he will call and make appointment in 1 week for follow-up. Patient oral dose of Lasix increased from once daily at home to twice a day upon discharge Wire Cutter also were following the patient closely, his baseline creatinine of 2.5 and worsened during this admission to 4-4.2 over several days. Again patient was asymptomatic on the day of discharge as stated in his back to his normal self. I discussed the case with Dr. Roqeu today and he feels him for discharge to follow up with his classroom technology technician Dr. Lyle at [facility]. Patient agrees to chromic appointment as well. Also patient was found to have mild anemia with hemoglobin stable 8.9-9.4, no evidence of active bleeding, patient never had colonoscopy before and he was instructed and recommended to follow-up with GI service for possible colonoscopy for screening purposes, risk of cancer explained for him extensively and he agreed to do follow-up. On the day of discharge patient denies chest pain. No dyspnea. No abdominal pain. No fever. No change in urine or bowel habits. He was on room air with hemodynamically stable. Patient agrees to go home today. Patient was cleared for discharge by both institutional cook and classroom technology technician Problems and management plan were discussed with the patient and he verbalized understanding and acceptance Patient was found stable and can be discharged home however he needs follow-up as an outpatient. Patient was instructed to follow up with PCP Skye Khoury within one week and patient agrees. I called WAYNE Khoury today and discussed the case with her including recommendation for close follow-up with his classroom technology technician, institutional cook has resolved GI for sectioning colonoscopy and she kindly took note of these recommendations,Also on appointment was made for him with her on 08/13 and patient made aware of this appointment and he agrees Patient was instructed to follow up with his classroom technology technician and institutional cook at [facility] in one week and to call and make appointment and he agrees, otherwise contact information is provided for him for Dr. Low and Dr. Salgado moderate needs teacher Physical exam -Gen: patient is a AAOx3, no distress. Obese CVS: S1-S2, RRR, no murmur Lungs: B/L CTA, no wheezing Abdomen: soft, no distention, no tenderness, positive bowel sounds -Extremity: no leg edema or induration. Status post left BKA and right forefoot amputation Time spent more than 35 minutes Plan - Discharge Summary New Discharge Prescriptions: New hydrALAZINE HCL [Apresoline] 75 mg PO TID #90 tab Isosorbide Mononitrate ER [Imdur] 60 mg PO DAILY #30 tablet Famotidine [Pepcid] 20 mg PO DAILY #60 tab Furosemide [Lasix] 40 mg PO BID@0900,1600 #60 tab Atorvastatin [Lipitor] 40 mg PO DAILY #30 tab Continue Sodium Bicarbonate Tab 650 mg PO BID Metoprolol Tartrate [Lopressor] 100 mg PO BID Aspirin EC [Ecotrin Low Dose] 81 mg PO HS ALPRAZolam [Xanax] 0.5 mg PO BID PRN PRN Reason: Anxiety calcitrioL [Calcitriol] 0.25 mcg PO DAILY Discontinued amLODIPine [Norvasc] 10 mg PO DAILY hydrALAZINE HCL [Apresoline] 50 mg PO BID Insulin Glargine [Lantus Vial] 14 unit SQ DAILY Pravastatin Sodium [Pravachol] 20 mg PO HS Furosemide [Lasix] 40 mg PO DAILY PRN PRN Reason: Edema hydrALAZINE HCL [Apresoline] 100 mg PO DAILY@1200 glipiZIDE [Glucotrol] 10 mg PO [id number]-[id number] Discharge Medication List ALPRAZolam [Xanax] 0.5 mg PO BID PRN 08/03/21 [History] Aspirin EC [Ecotrin Low Dose] 81 mg PO HS 08/03/21 [History] Metoprolol Tartrate [Lopressor] 100 mg PO BID 08/03/21 [History] Sodium Bicarbonate Tab 650 mg PO BID 08/03/21 [History] calcitrioL [Calcitriol] 0.25 mcg PO DAILY 08/03/21 [History] Atorvastatin [Lipitor] 40 mg PO DAILY #30 tab 08/10/21 [Rx] Famotidine [Pepcid] 20 mg PO DAILY #60 tab 08/10/21 [Rx] Furosemide [Lasix] 40 mg PO BID@0900,1600 #60 tab 08/10/21 [Rx] Isosorbide Mononitrate ER [Imdur] 60 mg PO DAILY #30 tablet 08/10/21 [Rx] hydrALAZINE HCL [Apresoline] 75 mg PO TID #90 tab 08/10/21 [Rx] Follow up Appointment(s)/Referral(s): [facility] [Other] - 08/13/21 1:00 pm Jade Low MD [STAFF PHYSICIAN] - 1 Week (the Office will call with an appointment) Melva Salgado MD [STAFF PHYSICIAN] - 2 Weeks (gastroentorologsit we recommend screening colonoscopy with your doctor) Patient Instructions/Handouts: Heart Failure (DC), Pulmonary Edema (DC) Activity/Diet/Wound Care/Special Instructions: Make sure to call and make appointments with your institutional cook and classroom technology technician at [facility] check you glucose 4 times a day before each meal and at bed time, keep the results in a log book and bring it to your doctor on your appointment date if your glucose is less than 70 or more than 400 then call 911 and come to emergency room follow up with your institutional cook in one week , you have the contact information as you told the medical staff Discharge Disposition: HOME WITH HOME HEALTH SERVICES
== END 2021-08-10 11:18 | disposition home health service (06) | DRG 291 ==
LOC: EC 13:26 → 3SCARD 13:51
PROVIDERS: ADMIT Internal Medicine; ATTEND Internal Medicine
DX: I13.0 Hypertensive heart and chronic kidney disease with heart failure and stage 1 through stage 4 chronic kidney disease, or unspecified chronic kidney disease (principal); I50.23 Acute on chronic systolic (congestive) heart failure; J96.01 Acute respiratory failure with hypoxia; N17.9 Acute kidney failure, unspecified; E87.2 Acidosis; Z99.2 Dependence on renal dialysis; I25.110 Atherosclerotic heart disease of native coronary artery with unstable angina pectoris; I42.9 Cardiomyopathy, unspecified; Z95.1 Presence of aortocoronary bypass graft; Z95.0 Presence of cardiac pacemaker; Z89.512 Acquired absence of left leg below knee; Z85.51 Personal history of malignant neoplasm of bladder; Z83.3 Family history of diabetes mellitus; Z90.6 Acquired absence of other parts of urinary tract; Z93.6 Other artificial openings of urinary tract status; Z79.82 Long term (current) use of aspirin; Z79.4 Long term (current) use of insulin; Z53.9 Procedure and treatment not carried out, unspecified reason; Z79.899 Other long term (current) drug therapy; Z82.49 Family history of ischemic heart disease and other diseases of the circulatory system; E78.5 Hyperlipidemia, unspecified; N18.32 Chronic kidney disease, stage 3b; E11.22 Type 2 diabetes mellitus with diabetic chronic kidney disease; E11.51 Type 2 diabetes mellitus with diabetic peripheral angiopathy without gangrene; F41.0 Panic disorder [episodic paroxysmal anxiety]; I07.1 Rheumatic tricuspid insufficiency; M89.9 Disorder of bone, unspecified; I27.22 Pulmonary hypertension due to left heart disease; E61.1 Iron deficiency; D63.8 Anemia in other chronic diseases classified elsewhere
CPT/HCPCS: 71046; 78582; 80048; 82570; 83036; 83540; 83550; 83735; 83880; 84156; 84484; 85025; 93306; 93970; 94760; 96374; 99285

== ENCOUNTER 2024-12-27 12:40 | Emergency (ER) | payer OTHER, MEDICARE ==
[2024-12-27 12:49] VITALS: RESP 18
--- NOTE | 2024-12-27 13:20 | ED ---
General Adult HPI - General Chief complaint: Urogenital Stated complaint: UTI Time Seen by Provider: 12/27/24 12:43 Source: patient, EMS, RN notes reviewed, old records reviewed Mode of arrival: EMS Limitations: no limitations - History of Present Illness Initial comments: Patient is a 69-year-old male presenting to the emergency department as transfer from [facility]. Patient went there with complaints of diarrhea. Symptoms have been present for the past almost 2 weeks. Patient is having diarrhea up to 5 times per day. Patient has nausea and dry heaves. No fever. No abdominal pain. Patient is a dialysis patient. Patient also has history of urostomy. Patient did have CT scan there concerning for left obstructing uropathy. Also concern for urinary tract infection. - Related Data Home Medications Medication Instructions Recorded Confirmed ALPRAZolam [Xanax] 0.5 mg PO BID PRN 08/03/21 08/03/21 Aspirin EC [Ecotrin Low Dose] 81 mg PO HS 08/03/21 08/03/21 Metoprolol Tartrate [Lopressor] 100 mg PO BID 08/03/21 08/03/21 Sodium Bicarbonate Tab 650 mg PO BID 08/03/21 08/03/21 calcitrioL 0.25 mcg PO DAILY 08/03/21 08/03/21 Previous Rx's Medication Instructions Recorded Atorvastatin [Lipitor] 40 mg PO DAILY #30 tab 08/10/21 Famotidine [Pepcid] 20 mg PO DAILY #60 tab 08/10/21 Furosemide [Lasix] 40 mg PO BID@0900,1600 #60 tab 08/10/21 Isosorbide Mononitrate ER [Imdur] 60 mg PO DAILY #30 tablet 08/10/21 hydrALAZINE HCL [Apresoline] 75 mg PO TID #90 tab 08/10/21 Allergies Allergy/AdvReac Type Severity Reaction Status Date / Time levofloxacin [From Levaquin] Allergy Rash/Hives Verified 12/27/24 12:50 metformin Allergy Vomiting Verified 12/27/24 12:50 sertraline [From Zoloft] Allergy Vomiting Verified 12/27/24 12:50 Review of Systems ROS Statement: Those systems with pertinent positive or pertinent negative responses have been documented in the HPI. ROS Other: All systems not noted in ROS Statement are negative. Constitutional: Denies: fever Eyes: Denies: eye pain ENT: Denies: ear pain Respiratory: Denies: cough, dyspnea Cardiovascular: Denies: chest pain Endocrine: Reports: fatigue Gastrointestinal: Reports: nausea, diarrhea. Denies: abdominal pain, vomiting Musculoskeletal: Denies: back pain Skin: Denies: rash Past Medical History Past Medical History: Heart Failure, Diabetes Mellitus, Hypertension, Renal Disease Additional Past Medical History / Comment(s): mass of neck, UTI History of Any Multi-Drug Resistant Organisms: None Reported Past Surgical History: Coronary Bypass/CABG, Heart Catheterization, Pacemaker Additional Past Surgical History / Comment(s): urostomy, BKA Type of Cardiac Device: Permanent Pacemaker Device Placement Date:: 2017 Past Psychological History: Anxiety, Panic Disorder Smoking Status: Never smoker Past Alcohol Use History: None Reported Past Drug Use History: None Reported - Past Family History Father Family Medical History: Congestive Heart Failure (CHF), Diabetes Mellitus, Hypertension General Exam Limitations: no limitations General appearance: alert, in no apparent distress Head exam: Present: normocephalic Eye exam: Present: normal appearance Neck exam: Present: normal inspection Respiratory exam: Present: normal lung sounds bilaterally Cardiovascular Exam: Present: regular rate, normal rhythm GI/Abdominal exam: Present: soft. Absent: tenderness Extremities exam: Present: other (Left leg amputation. Right toes amputation) Neurological exam: Present: alert Psychiatric exam: Present: normal affect, normal mood Skin exam: Present: normal color Course Vital Signs 12/27/24 12:43 Temperature 98.4 F Pulse Rate 89 Respiratory 18 Rate Blood Pressure 127/82 O2 Sat by Pulse 98 Oximetry Medical Decision Making - Medical Decision Making Was pt. sent in by a medical professional or institution (Dr. PA, RADIO AERIAL INSTALLER, urgent care, hospital, or residential...) When possible be specific @ -Patient was sent from [facility] in [place] Did you speak to anyone other than the patient for history (EMS, parent, family, police, friend...)? What history was obtained from this source @ -No Did you review nursing and triage notes (agree or disagree)? Why? @ -I reviewed and agree with nursing and triage notes Were old charts reviewed (outside hosp., previous admission, EMS record, old EKG, old radiological studies, urgent care reports/EKG's, residential records)? Report findings @ -Chart reviewed from [facility] Differential Diagnosis (chest pain, altered mental status, abdominal pain women, abdominal pain men, vaginal bleeding, weakness, fever, dyspnea, syncope, headache, dizziness, GI bleed, back pain, seizure, CVA, palpatations, mental health, musculoskeletal)? @ -Differential Abdominal Pain Men: Appendicitis, cholecystitis, diverticulosis, ischemic bowel, pancreatitis, hepatitis, UTI, gastroenteritis, AAA, incarcerated hernia, bowel obstruction, constipation, inflammatory bowel, hepatitis, peptic ulcer disease, splenic infarction, perforated viscus, testicular torsion, this is not meant to be an all-inclusive list EKG interpreted by me (3pts min.). @ -As above X-rays interpreted by me (1pt min.). @ -None done CT interpreted by me (1pt min.). @ -None done U/S interpreted by me (1pt. min.). @ -None done What testing was considered but not performed or refused? (CT, X-rays, U/S, labs)? Why? @ -Considered imaging, urinalysis some blood work however this is already been done What meds were considered but not given or refused? Why? @ -None Did you discuss the management of the patient with other professionals (professionals i.e. , PA, RADIO AERIAL INSTALLER, lab, RT, psych nurse, social service liaison, glass laminating operator, teacher, founder and chief technical officer, case specialist)? Give summary @ -Urology, Dr. Anguiano who states patient will need to be transferred for nephrostomy tube placement with interventional radiology which we do not do here. Case also discussed with Cecil at [facility] who will accept transfer covering for Dr. Gonzalez. Patient requested [facility] because he has been there previously. Was smoking cessation discussed for >3mins.? @ -No Was critical care preformed (if so, how long)? @ -No Were there social determinants of health that impacted care today? How? (Homelessness, low income, unemployed, alcoholism, drug addiction, transportation, low edu. Level, literacy, decrease access to med. care, nursing home, r ehab)? @ -No Was there de-escalation of care discussed even if they declined (Discuss DNR or withdrawal of care, Hospice)? DNR status @ -No What co-morbidities impacted this encounter? (DM, HTN, Smoking, COPD, CAD, Cancer, CVA, ARF, Chemo, Hep., AIDS, mental health diagnosis, sleep apnea, morbid obesity)? @ -History of urostomy. Dialysis patient Was patient admitted / discharged? Hospital course, mention meds given and route, prescriptions, significant lab abnormalities, going to OR and other pertinent info. @ -Patient presents as a transfer with a chief complaint of diarrhea. Patient does have elevated white blood cell count and CT scan concerning for obstructive uropathy. Patient has 10-20 white cells on urinalysis. No fevers. Patient is due for dialysis today. Patient did receive cefepime already prior to transfer. Secondary to inability to have nephrostomy tube placed here patient will need to be transferred again and will be transferred to [facility]. Patient updated. Patient will need nephrostomy tube, continue treatment for potential infection, and dialysis. Undiagnosed new problem with uncertain prognosis? @ -No Drug Therapy requiring intensive monitoring for toxicity (Heparin, Nitro, Insulin, Cardizem)? @ -No Were any procedures done? @ -No Diagnosis/symptom? @ -Obstructive uropathy, diarrhea Acute, or Chronic, or Acute on Chronic? @ -Acute, acute Uncomplicated (without systemic symptoms) or Complicated (systemic symptoms)? @ -Complicated with hyperkalemia Side effects of treatment? @ -No Exacerbation, Progression, or Severe Exacerbation? @ -No Poses a threat to life or bodily function? How? (Chest pain, USA, MA, pneumonia, PE, COPD, DKA, ARF, appy, cholecystitis, CVA, Diverticulitis, Homicidal, Suicidal, threat to staff... and all critical care pts) @ -Threat to renal function Disposition Clinical Impression: Obstructive uropathy, End-stage renal disease on hemodialysis Disposition: LEFT AGAINST MEDICAL ADVICE Is patient prescribed a controlled substance at d/c from ED?: No Referrals: [facility] [Primary Care Provider] - 1-2 days Time of Disposition: 13:56 - Out of Hospital Transfer - Req. Specs Out of Hospital Transfer - Requested Specifics: Other Emergency Center
[2024-12-27] MEDS: ONDANSETRON 4 MG/2 ML VIAL IVP STA (14:04)
[2024-12-27 14:13] VITALS: PULSE 93
[2024-12-27 14:57] VITALS: BP 164/86; TEMP 99.7
== END 2024-12-27 15:26 | disposition left against medical advice (07) ==
LOC: EC 12:40
DX: N13.9 Obstructive and reflux uropathy, unspecified (principal); Z99.2 Dependence on renal dialysis; N18.6 End stage renal disease; Z53.29 Procedure and treatment not carried out because of patient's decision for other reasons; Z88.5 Allergy status to narcotic agent; Z88.1 Allergy status to other antibiotic agents; Z88.8 Allergy status to other drugs, medicaments and biological substances
CPT/HCPCS: 99283; 96374; J2405